=== PATIENT | female | born 1965 | race Caucasian/White ===

== ENCOUNTER → 2017-08-06 | Outpatient (CLI) | payer OTHER ==
[~2017-08-06] MED LIST: AMIT25TA9 PO; CALC500T83 PO; MULTTAB58 PO; TIZA4CAP PO
--- NOTE | 2017-08-07 07:35 | MAMMOGRAPHY REPORT ---
BILATERAL DIGITAL SCREENING MAMMOGRAM TOMOSYNTHESIS WITH CAD: 08/06/2017 CLINICAL HISTORY: Routine screening examination. TECHNIQUE: Breast tomosynthesis in addition to standard 2D mammography was performed. Current study was also evaluated with a Computer Aided Detection (CAD) system. COMPARISON: Comparison is made to exams dated: 08/30/2015 mammogram, 06/25/2013 mammogram, 2 mammogram, 06/12/2011 mammogram, 06/05/2010 mammogram - [facility], and 03/01/2009. BREAST COMPOSITION: There are scattered areas of fibroglandular density in both breasts. FINDINGS: No suspicious mass, architectural distortion or cluster of microcalcifications is seen. IMPRESSION: ACR BI-RADS CATEGORY 1: NEGATIVE There is no mammographic evidence of malignancy. A 1 year screening mammogram is recommended. The pa tient will receive written notification of the results. Approximately 10% of breast cancers are not detected with mammography. A negative mammographic report should not delay biopsy if a clinically suggestive mass is present. Shauna katz/silas:08/06/2017 17:04:07 Manager Background: Pricilla ESPINOSA(R)(M), [facility] letter sent: Normal 1/2 BI-RADS Code: ACR BI-RADS Category 1: Negative
== END | disposition home or self-care (01) ==
LOC: EDSTATUS 08:55 → C.MAMM 09:02
PROVIDERS: ATTEND Obstetrics & Gynecology
DX: Z12.31 Encounter for screening mammogram for malignant neoplasm of breast (principal)

== ENCOUNTER 2017-09-30 18:30 | Emergency (ER) | payer OTHER ==
[~2017-09-30] VITALS: Ht 154.9 cm; Wt 66.5 kg
[2017-09-30 19:15] VITALS: TEMP 36.9; Ht 154.9 cm; Wt 66.5 kg
[2017-09-30 20:38] LABS: BASO % 0.4 %; BASO ABS # 0.02 K/uL (0-0.2); EOS % 0.4 %; EOS ABS # 0.02 K/uL (0-0.5); HEMATOCRIT 36.6 % (37-47); HEMOGLOBIN 12.7 g/dL (12.0-16.0); IG# 0.01 K/uL (0.00-0.02); LYMPH % 30.9 %; LYMPH ABS # 1.47 K/uL (1.2-3.4); MEAN CELL VOLUME 89.7 fL (80-100); MEAN CORPUSCULAR HEMOGLOBIN 31.1 pg (25-34); MEAN CORPUSCULAR HGB CONC 34.7 g/dl (32-36); MEAN PLATELET VOLUME 9.1 fL (7.4-10.4); MONO % 3.4 %; MONO ABS # 0.16 K/uL (0.11-0.59); NEUT % 64.7 %; NEUT ABS # 3.08 K/uL (1.4-6.5); PLATELET COUNT 175 K/uL (130-400); RED CELL DISTRIBUTION WIDTH CV 11.7 % (11.5-14.5); RED CELL DISTRIBUTION WIDTH SD 38.5 fL (36.4-46.3); WHITE BLOOD COUNT 4.76 K/uL (4.8-10.8)
[2017-09-30 20:48] LABS: INFLUENZA B ANTIGEN Neg for Influ B (NEG)
[2017-09-30 20:50] LABS: CALCIUM 9.2 mg/dl (8.5-10.1); CREATININE 0.79 mg/dl (0.60-1.20); POTASSIUM 3.5 mmol/L (3.5-5.1); PTT PATIENT 25.7 SECONDS (21.0-31.0)
--- NOTE | 2017-09-30 21:07 | DIAGNOSTIC IMAGING REPORT ---
CHEST 2 VIEWS ROUTINE CLINICAL HISTORY: Cough COMPARISON STUDY: 01/14/2014 FINDINGS: The cardiac and mediastinal contours are normal. There is no evidence of focal pulmonary consolidation. There is no evidence of failure. No pleural effusions are visualized.[ IMPRESSION: No active disease in the chest. Electronically signed by: Vignesh Roa M.D. 09/30/2017 9:06 PM Dictated Date/Time: 09/30/2017 9:06 PM
[2017-09-30] MEDS ORDERED: ONDANSETRON INJ 2 MG/ML 2 ML VIAL IV STA (21:33)
[2017-09-30] MEDS ORDERED: ONDA4TAB10 SL (23:00)
[2017-09-30 23:18] VITALS: BP 117/73; PULSE 76; O2SAT 97
--- NOTE | 2017-10-01 00:25 | EMERGENCY ROOM VISIT NOTE ---
History Report prepared by Waylon: Everardo Patten Under the Supervision of: Dr. Jose Giraldo M.D. First contact with patient: 19:49 Chief Complaint: FLU LIKE SX Stated Complaint: FLU LIKE SX, MULTILPE SX History of Present Illness The patient is a 51 year old female who presents to the Emergency Room with complaints of persistent flu-like symptoms that began 8 days prior to arrival. The patient states that her symptoms began with a sore throat and "hoarse" voice that lasted for 2-3 days. She then developed a fever which lasted for a few days, but she did not record any specific temperatures. The patient also complains of persistent nausea over the past couple of days and a discomfort in the epigastric region of her abdomen/chest. She notes that this discomfort is only present with movement and resolved on its own when she stops moving. It is not related to exertion. She states that it feels more like a nausea sensation in any type of pain. She was concerned because she thought it may be related to her heart. She denies any associated shortness of breath or diaphoresis. She denies any chest pressure, tightness or squeezing. There have not been any vomiting episodes with her nausea. She has a cough currently which is producing a "greenish-yellow" colored mucous. When she coughs she can feel a pain in her upper back. The patient is currently taking an old prescription of Doxycycline that she started herself on 7 days ago. 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 A total of 10 systems reviewed and were otherwise negative. Past Medical & Surgical Medical Problems: (1) Carpal tunnel syndrome (2) Chronic low back pain (3) Guillain-Azevedo syndrome Family History No pertinent family history Social History Smoking Status: Never Smoker Alcohol Use: none Drug Use: none Marital Status: Housing Status: lives with family Occupation Status: employed Current/Historical Medications Scheduled Multiple Vitamin (Multivitamin), 1 TAB PO HS Ondasetron Odt (Zofran Odt), 4 MG SL Q6H Allergies Coded Allergies: Naproxen (Verified Allergy, Severe, swelling of face and throat, 1/29/18) Flu Virus Vaccine (Verified Allergy, Unknown, UNKNOWN, 09/30/17) patient has never received...she says she got gullain barre in 2007 and that is why she can't receive the vaccine Physical Exam Vital Signs Date Time Temp Pulse Resp B/P (MAP) Pulse Ox O2 Delivery O2 Flow Rate FiO2 09/30/17 23:18 76 16 117/73 97 09/30/17 23:08 76 16 117/73 97 Room Air 09/30/17 22:57 76 09/30/17 22:27 91 16 116/72 98 Room Air 09/30/17 20:40 87 14 116/76 98 Room Air 09/30/17 19:15 36.9 84 20 129/87 99 Room Air Physical Exam Constitutional: Vital signs reviewed. Eyes: Pupils are equal round reactive to light. Conjunctiva are noninjected. ENT: Pharynx is clear without erythema or exudate. Mucous membranes are moist. Neck supple without meningeal signs. Respiratory: Clear to auscultation bilaterally. Breath sounds are equal bilaterally. Cardiovascular: Regular rate and rhythm. No rubs or gallops. GI: Soft, nondistended and nontender. Bowel sounds are present. Musculoskeletal: No peripheral edema. No lower extremity tenderness. Integumentary: No cyanosis. Neurological: The patient is awake and alert. No focal deficits. Psychiatric: Anxious. Medical Decision & Procedures ER Provider Diagnostic Interpretation: Radiology results as stated below per my review and the radiologist's interpretation: CHEST 2 VIEWS ROUTINE CLINICAL HISTORY: Cough COMPARISON STUDY: 01/14/2014 FINDINGS: The cardiac and mediastinal contours are normal. There is no evidence of focal pulmonary consolidation. There is no evidence of failure. No pleural effusions are visualized.[ IMPRESSION: No active disease in the chest. Electronically signed by: Vignesh Roa M.D. 09/30/2017 9:06 PM Dictated Date/Time: 09/30/2017 9:06 PM Laboratory Results 09/30/17 20:20 Red Blood Count 4.08, Mean Corpuscular Volume 89.7, Mean Corpuscular Hemoglobin 31.1, Mean Corpuscular Hemoglobin Concent 34.7, Mean Platelet Volume 9.1, Neutrophils (%) (Auto) 64.7, Lymphocytes (%) (Auto) 30.9, Monocytes (%) (Auto) 3.4, Eosinophils (%) (Auto) 0.4, Basophils (%) (Auto) 0.4, Neutrophils # (Auto) 3.08, Lymphocytes # (Auto) 1.47, Monocytes # (Auto) 0.16, Eosinophils # (Auto) 0.02, Basophils # (Auto) 0.02 09/30/17 20:20 Test 09/30/17 20:04 09/30/17 20:20 09/30/17 21:47 Influenza Type A Antigen Neg for Influ A (NEG) Influenza Type B Antigen Neg for Influ B (NEG) White Blood Count 4.76 K/uL (4.8-10.8) Red Blood Count 4.08 M/uL (4.2-5.4) Hemoglobin 12.7 g/dL (12.0-16.0) Hematocrit 36.6 % (37-47) Mean Corpuscular Volume 89.7 fL (80-100) Mean Corpuscular Hemoglobin 31.1 pg (25-34) Mean Corpuscular Hemoglobin Concent 34.7 g/dl (32-36) Platelet Count 175 K/uL (130-400) Mean Platelet Volume 9.1 fL (7.4-10.4) Neutrophils (%) (Auto) 64.7 % Lymphocytes (%) (Auto) 30.9 % Monocytes (%) (Auto) 3.4 % Eosinophils (%) (Auto) 0.4 % Basophils (%) (Auto) 0.4 % Neutrophils # (Auto) 3.08 K/uL (1.4-6.5) Lymphocytes # (Auto) 1.47 K/uL (1.2-3.4) Monocytes # (Auto) 0.16 K/uL (0.11-0.59) Eosinophils # (Auto) 0.02 K/uL (0-0.5) Basophils # (Auto) 0.02 K/uL (0-0.2) RDW Standard Deviation 38.5 fL (36.4-46.3) RDW Coefficient of Variation 11.7 % (11.5-14.5) Immature Granulocyte % (Auto) 0.2 % Immature Granulocyte # (Auto) 0.01 K/uL (0.00-0.02) Prothrombin Time 10.4 SECONDS (9.0-12.0) Prothromb Time International Ratio 1.0 (0.9-1.1) Activated Partial Thromboplast Time 25.7 SECONDS (21.0-31.0) Partial Thromboplastin Ratio 1.0 Anion Gap 7.0 mmol/L (3-11) Est Creatinine Clear Calc Drug Dose 73.5 ml/min Estimated GFR () 100.5 Estimated GFR (Non- 86.7 BUN/Creatinine Ratio 14.3 (10-20) Calcium Level 9.2 mg/dl (8.5-10.1) Bedside Troponin I < 0.030 ng/ml (0-0.045) Laboratory results as reviewed by me. Medications Administered Medications (Trade) Dose Ordered Sig/Beth Route Start Time Stop Time Status Last Admin Dose Admin Ondansetron HCl (Zofran Inj) 4 mg NOW STAT IV 09/30/17 21:33 09/30/17 21:34 DC 09/30/17 21:33 4 MG ECG Indication: abdominal pain, chest pain Rate (beats per minute): 81 Rhythm: normal sinus Findings: RBBB (incomplete), no ectopy, other (RSR pattern in the septal leads. No ST elevation) Comparison ECG Date: 02/10/2016 Change: no significant change Change: Patient's electrocardiogram per my interpretation.. ED Course 1950: The patient was evaluated in room A2. A complete history and physical exam was performed. 2129: I checked on the patient at this time and discussed test results. She agrees with taking a 90 minute Troponin test. 2132: Ordered Zofran 4 mg IV. 2256: Upon reevaluation, the patient noted that the chest discomfort that she previously described at nausea is now gone after Zofran. I discussed tonight's findings with her. She verbalized agreement of the treatment plan. The patient was discharged home. Medical Decision This is a 51-year-old female who presents with flulike symptoms and a chest discomfort. Differential diagnosis includes influenza, pneumonia, bronchitis, anginal equivalent, dyspepsia. I did perform a limited focused review of portions of the patient's old chart on the electronic medical record. The patient has had no recent pertinent visits to this hospital. I did evaluate the patient as noted above. The patient is presenting with flulike symptoms for the past week. She has been self-medicating with doxycycline which she has had from a prior prescription. It is not . She was concerned because she developed a chest discomfort which she describes as mostly and nausea. She states it's there only when she moves around but not related to exertion. She has no associated symptoms with it. IV access was established. The patient was placed on a continuous groundwater monitoring technician. I did order and personally review the patient's 12-lead EKG and chest x-ray as described above. Her twelve-lead EKG is unremarkable. Chest x-ray does not show any signs of pneumonia. I did order and review the patient's blood work as noted in the electronic medical record. Troponin is negative 2. Flu testing is negative. I did treat the patient with Zofran IV. She stated that her chest discomfort resolved after Zofran. The patient was advised follow with her doctor for further evaluation. She was given a prescription for Zofran and given return instructions as outlined below. Medication Reconcilliation Current Medication List: was personally reviewed by me Blood Pressure Screening Patient's blood pressure: Elevated blood pressure Impression Primary Impression: Influenza-like symptoms Additional Impression: Atypical chest pain Scribe Attestation The scribe's documentation has been prepared under my direct and personally reviewed by me in its entirety. I confirm that the note above accurately reflects all work, treatment, procedures, and medical decision making performed by me. Departure Information Dispostion Home / Self-Care Prescriptions Ondasetron Odt (ZOFRAN ODT) 4 Mg Tab 4 MG SL Q6H for Nausea, #10 TAB Prov: Jose Giraldo M.D. 09/30/17 Referrals No Doctor, Assigned (PCP) Forms HOME CARE DOCUMENTATION FORM, IMPORTANT VISIT INFORMATION Patient Instructions My [facility] Additional Instructions You have been examined and treated today on an emergency basis only. This is not a substitute for, or an effort to provide, complete comprehensive medical care. It is impossible to recognize and treat all injuries or illnesses in a single emergency department visit. It is therefore important that you follow up closely with your physician. Call as soon as possible for an appointment. Return for worsening symptoms or if you develop chest pain or discomfort such as squeezing, tightness or pressure, abdominal pain, trouble breathing, vomiting , or any other concerning symptoms. Problem Qualifiers
== END 2017-09-30 23:19 | disposition home or self-care (01) ==
LOC: C.EDB 18:32 → C.EDA 23:19
DX: J02.9 Acute pharyngitis, unspecified (principal); R50.9 Fever, unspecified; R11.0 Nausea; R10.13 Epigastric pain; R05 Cough; R07.89 Other chest pain; G56.00 Carpal tunnel syndrome, unspecified upper limb; M54.5 Low back pain; G89.29 Other chronic pain; G61.0 Guillain-Barre syndrome; I45.10 Unspecified right bundle-branch block

== ENCOUNTER → 2017-10-24 | Outpatient (CLI) | payer BC ==
[~2017-10-24] MED LIST changes: -AMIT25TA9 PO; -CALC500T83 PO; +ONDA4TAB10 SL; -TIZA4CAP PO
== END | disposition home or self-care (01) ==
LOC: C.PAPS 11:55
PROVIDERS: ATTEND Obstetrics & Gynecology
DX: Z01.419 Encounter for gynecological examination (general) (routine) without abnormal findings (principal)

== ENCOUNTER 2018-04-19 23:30 | Emergency (ER) | payer BC ==
[~2018-04-19] VITALS: Ht 154.9 cm; Wt 72.7 kg
[~2018-04-19 23:30] MED LIST changes: -ONDA4TAB10 SL
[2018-04-19 23:36] VITALS: TEMP 36.7; Ht 154.9 cm; Wt 72.7 kg
[2018-04-19] MEDS ORDERED: KETOROLAC TROMETHAMINE 30 MG/ML VIAL IV STA (23:56)
[2018-04-20] MEDS ORDERED: CALC500C70 PO (00:12)
[2018-04-20 00:18] LABS: BASO % 0.4 %; BASO ABS # 0.02 K/uL (0-0.2); EOS % 2.6 %; EOS ABS # 0.12 K/uL (0-0.5); HEMATOCRIT 36.9 % (37-47); HEMOGLOBIN 12.3 g/dL (12.0-16.0); IG# 0.01 K/uL (0.00-0.02); LYMPH % 40.4 %; LYMPH ABS # 1.89 K/uL (1.2-3.4); MEAN CELL VOLUME 90.9 fL (80-100); MEAN CORPUSCULAR HEMOGLOBIN 30.3 pg (25-34); MEAN CORPUSCULAR HGB CONC 33.3 g/dl (32-36); MEAN PLATELET VOLUME 8.7 fL (7.4-10.4); MONO % 6.4 %; NEUT ABS # 2.34 K/uL (1.4-6.5); PLATELET COUNT 178 K/uL (130-400); RED CELL DISTRIBUTION WIDTH CV 12.6 % (11.5-14.5); RED CELL DISTRIBUTION WIDTH SD 42.1 fL (36.4-46.3); WHITE BLOOD COUNT 4.68 K/uL (4.8-10.8)
[2018-04-20 00:39] LABS: BLOOD UREA NITROGEN 20 mg/dl (7-18); CALCIUM 8.3 mg/dl (8.5-10.1); CARBON DIOXIDE 27 mmol/L (21-32); CREATININE 0.77 mg/dl (0.60-1.20); GLUCOSE 91 mg/dl (70-99); POTASSIUM 3.9 mmol/L (3.5-5.1); SODIUM 142 mmol/L (136-145)
--- NOTE | 2018-04-20 00:41 | EMERGENCY ROOM VISIT NOTE ---
History Report prepared by Waylon: Jose Watts Under the Supervision of: Dr. Lyndsey Grimaldo D.O. First contact with patient: 23:43 Chief Complaint: ARM PAIN Stated Complaint: PAIN IN LEFT ARM History of Present Illness The patient is a 52 year old female who presents to the Emergency Room with complaints of waxing and waning upper left arm pain that began 2-3 days ago. Patient states she tripped over her dog a week ago but was not experiencing the pain at that time. She adds she had left shoulder surgery performed a little over a year ago. Patient states that nothing worsens her pain. She adds that she has taken ibuprofen and Tylenol without any relief of her symptoms. Patient adds she has a bruise on her forehead after being hit in the head by her dog. 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 Past medical history includes Guillain-[place]moreland Syndrome in 2007. Patient adds she gets mammograms with her last one being in October. Family history includes pancreatic and lung cancer. Patient states she is right-handed. She adds she drove herself to the ER. Patient believes she has had her cholesterol levels checked but does not know the last time. Patient denies abdominal pain, leg cramping/swelling, chest pain, SOB, nausea, vomiting, diaphoresis, and a history of smoking. Source of History: patient Onset: 2-3 days ago Position: arm (Upper left) Timing: waxes/wanes Modifying Factors (Relieving): other (None) Associated Symptoms: No diaphoresis, No chest pain, No SOB, No nausea, No vomiting, No abdominal pain Note: Negative leg cramping/swelling. Review of Systems See HPI for pertinent positives & negatives. A total of 10 systems reviewed and were otherwise negative. Past Medical & Surgical Medical Problems: (1) Carpal tunnel syndrome (2) Chronic low back pain (3) Guillain-Azevedo syndrome Family History No pertinent family history Social History Smoking Status: Never Smoker Alcohol Use: none Drug Use: none Marital Status: Housing Status: lives with family Occupation Status: employed Current/Historical Medications Scheduled Calcium/Vitamin D (Os-Jose 500 Plus D), 1 TAB PO DAILY Multiple Vitamin (Multivitamin), 1 TAB PO HS Allergies Coded Allergies: Naproxen (Verified Allergy, Severe, swelling of face and throat, 04/20/18) Flu Virus Vaccine (Verified Allergy, Unknown, UNKNOWN, 04/20/18) patient has never received...she says she got gullain barre in 2007 and that is why she can't receive the vaccine Physical Exam Vital Signs Date Time Temp Pulse Resp B/P (MAP) Pulse Ox O2 Delivery O2 Flow Rate FiO2 04/20/18 01:06 77 16 105/72 100 Room Air 04/19/18 23:36 36.7 89 18 123/83 93 Room Air Physical Exam HEENT: Head - normocephalic and atraumatic Pupils are equal, round, and reactive to light. Extraocular eye muscles are intact, and sclera are anicteric. Nose - moist nasal mucosa without discharge. Mouth - moist buccal mucosa. Oropharynx is nonerythematous and there is no tonsillar exudate or edema noted. Neck: Supple; no JVD, nuchal rigidity, cervical lymphadenopathy. Heart: Regular rate and rhythm. There is a normal S1 and S2 with no murmurs, clicks, or gallops appreciated. Lungs: Clear to auscultation bilaterally with no wheezes, rales, or rhonchi. Abdomen: Soft, completely nontender, nondistended, with good bowel sounds. There are no palpable pulsatile masses or hepatosplenomegaly. There is no guarding, rigidity, or rebound noted. Extremities: Edema around the upper biceps area. No evidence of cyanosis or clubbing. Pain with palpation in that area. There are easily palpable peripheral pulses. Skin: warm and dry with good turgor and no rashes. Medical Decision & Procedures ER Provider Diagnostic Interpretation: Radiology results as stated below per my review and the interpretation: CHEST X-RAY: X-ray shows no cardiomegaly, no pulmonary consolidation, and is unremarkable. LEFT HUMERUS X-RAY: X-ray shows no obvious fracture or abnormality. Laboratory Results 04/20/18 00:10 Red Blood Count 4.06, Mean Corpuscular Volume 90.9, Mean Corpuscular Hemoglobin 30.3, Mean Corpuscular Hemoglobin Concent 33.3, Mean Platelet Volume 8.7, Neutrophils (%) (Auto) 50.0, Lymphocytes (%) (Auto) 40.4, Monocytes (%) (Auto) 6.4, Eosinophils (%) (Auto) 2.6, Basophils (%) (Auto) 0.4, Neutrophils # (Auto) 2.34, Lymphocytes # (Auto) 1.89, Monocytes # (Auto) 0.30, Eosinophils # (Auto) 0.12, Basophils # (Auto) 0.02 04/20/18 00:10 Test 04/20/18 00:10 White Blood Count 4.68 K/uL (4.8-10.8) Red Blood Count 4.06 M/uL (4.2-5.4) Hemoglobin 12.3 g/dL (12.0-16.0) Hematocrit 36.9 % (37-47) Mean Corpuscular Volume 90.9 fL (80-100) Mean Corpuscular Hemoglobin 30.3 pg (25-34) Mean Corpuscular Hemoglobin Concent 33.3 g/dl (32-36) Platelet Count 178 K/uL (130-400) Mean Platelet Volume 8.7 fL (7.4-10.4) Neutrophils (%) (Auto) 50.0 % Lymphocytes (%) (Auto) 40.4 % Monocytes (%) (Auto) 6.4 % Eosinophils (%) (Auto) 2.6 % Basophils (%) (Auto) 0.4 % Neutrophils # (Auto) 2.34 K/uL (1.4-6.5) Lymphocytes # (Auto) 1.89 K/uL (1.2-3.4) Monocytes # (Auto) 0.30 K/uL (0.11-0.59) Eosinophils # (Auto) 0.12 K/uL (0-0.5) Basophils # (Auto) 0.02 K/uL (0-0.2) RDW Standard Deviation 42.1 fL (36.4-46.3) RDW Coefficient of Variation 12.6 % (11.5-14.5) Immature Granulocyte % (Auto) 0.2 % Immature Granulocyte # (Auto) 0.01 K/uL (0.00-0.02) Anion Gap 7.0 mmol/L (3-11) Est Creatinine Clear Calc Drug Dose 77.9 ml/min Estimated GFR () 102.9 Estimated GFR (Non- 88.8 BUN/Creatinine Ratio 26.5 (10-20) Calcium Level 8.3 mg/dl (8.5-10.1) Troponin I < 0.015 ng/ml (0-0.045) Laboratory results per my review. Medications Administered Medications (Trade) Dose Ordered Sig/Beth Route Start Time Stop Time Status Last Admin Dose Admin Ketorolac Tromethamine (Toradol Inj) 30 mg NOW STAT IV 04/19/18 23:56 04/19/18 23:58 DC 04/20/18 00:26 30 MG Procedure Toradol Inj 30mg IV ECG Per My Interpretation Indication: other (Left arm pain) Rate (beats per minute): 81 Rhythm: normal sinus Findings: no acute ischemic change, no ectopy, other (No ST segment changes) ED Course 2346: Past medical records reviewed. The patient was evaluated in room B6. A complete history and physical exam was performed. A 12-lead EKG was obtained as described above. An IV lock was initiated and labs were drawn as above. Patient had an x-ray of the left humerus and chest which were both unremarkable. 2356: Toradol Inj 30mg IV 0112: Upon reevaluation, the patient is resting comfortably and states she is feeling better. I discussed findings and results with her. She verbalized agreement of the treatment plan. She was discharged home. Medical Decision The patient is a 52 year old female who presents to the ED with waxing and waning upper left arm pain. Differential diagnosis includes musculoskeletal pain to the left arm, superior vena cava syndrome, cardiac ischemia, anginal equivalent, and left shoulder strain. Lab results show no leukocytosis, stable H&H, BUN = 20, creatinine = 0.7, glucose = 91, and negative troponin. This is a 52-year-old healthy female patient presents to the emergency department with discomfort in her left upper arm. She denies any specific injury to the arm. 12-lead EKG and cardiac enzymes were negative. She received a dose of IV Toradol with complete resolution of her pain. On physical exam, the patient did have some discomfort with palpation to the left upper arm and swelling noted in that area. She was encouraged to follow-up with her PCP if symptoms persisted. She was encouraged to avoid any strenuous activity or heavy lifting with the left arm for the next 3-5 days. Medication Reconcilliation Current Medication List: was personally reviewed by me Blood Pressure Screening Patient's blood pressure: Normal blood pressure Blood pressure disposition: Did not require urgent referral Impression Primary Impression: Pain of left humerus Scribe Attestation The scribe's documentation has been prepared under my direction and personally reviewed by me in its entirety. I confirm that the note above accurately reflects all work, treatment, procedures, and medical decision making performed by me. Departure Information Dispostion Home / Self-Care Referrals Don Sanders M.D. (PCP) Forms HOME CARE DOCUMENTATION FORM, IMPORTANT VISIT INFORMATION Patient Instructions My [facility] Additional Instructions Rest the left arm. No heavy lifting for next 3-5 days Motrin - 600mg every 6 hours with food for pain follow up with PCP if it continues
[2018-04-20 01:06] VITALS: BP 105/72; PULSE 77; O2SAT 100
--- NOTE | 2018-04-20 08:06 | DIAGNOSTIC IMAGING REPORT ---
L HUMERUS MIN 2 VIEWS ROUTINE CLINICAL HISTORY: Left proximal humerus pain. COMPARISON: Left shoulder radiographs December 13, 2015 and MRI of the left shoulder in 2016. FINDINGS: Note is made of a distal left clavicular resection. No fracture or osseous lesion within the left humerus is identified. Alignment of the left shoulder and elbow appears anatomic. IMPRESSION: No osseous abnormality of the left humerus. Electronically signed by: Jayme Barros M.D. 04/20/2018 8:04 AM Dictated Date/Time: 04/20/2018 8:03 AM
--- NOTE | 2018-04-20 08:07 | DIAGNOSTIC IMAGING REPORT ---
CHEST ONE VIEW PORTABLE CLINICAL HISTORY: Left arm pain. COMPARISON STUDY: Chest radiograph September 30, 2017. FINDINGS: Lung volumes are normal. There is no pneumothorax or pleural effusion. There is no consolidation or evidence for pulmonary edema. Cardiac size is normal. Mediastinal contours are normal. Appearance of the chest is unchanged. IMPRESSION: No acute cardiopulmonary findings. Electronically signed by: Jayme Barros M.D. 04/20/2018 8:06 AM Dictated Date/Time: 04/20/2018 8:04 AM
== END 2018-04-20 01:20 | disposition home or self-care (01) ==
LOC: C.EDB 23:31
DX: M79.622 Pain in left upper arm (principal); W01.0XXD Fall on same level from slipping, tripping and stumbling without subsequent striking against object, subsequent encounter; S00.83XD Contusion of other part of head, subsequent encounter; Z98.890 Other specified postprocedural states; Z85.07 Personal history of malignant neoplasm of pancreas; Z85.118 Personal history of other malignant neoplasm of bronchus and lung; G61.0 Guillain-Barre syndrome; M54.5 Low back pain; G89.29 Other chronic pain; Z88.6 Allergy status to analgesic agent; Z88.7 Allergy status to serum and vaccine

== ENCOUNTER 2018-12-28 19:53 | Inpatient (IN) ==
[2018-12-28] MEDS ORDERED: SODIUM CHLORIDE 0.9% 1000ML 1,000 ML IV ONE (20:10)
[2018-12-28 21:03] LABS: Appearance Urine Clear (Clear); Blood Urine Negative (Negative); Color Urine Dark Yellow; Glucose Urine UA Negative (Negative); Ketones Urine Negative (Negative); Leukocyte Esterase Urine Negative (Negative); Nitrite Urine Negative (Negative); Protein Urine Negative (Negative); Urobilinogen Urine Negative (Negative); pH Urine 6.5 (4.5-7.5)
[2018-12-28 21:04] LABS: Basophils # (auto) 0.01 K/uL (0-0.2); Basophils % (auto) 0.2 %; Eosinophils # (auto) 0.06 K/uL (0-0.5); Eosinophils % (auto) 1.3 %; Hematocrit (blood only) 36.4 % (37-47); Hemoglobin 12.8 g/dL (12.0-16.0); Immature Granulocytes # (auto) 0.01 K/uL (0.00-0.02); Immature Granulocytes % (auto) 0.2 %; Lymphocytes # (auto) 0.36 K/uL (1.2-3.4); Lymphocytes % (auto) 7.8 %; Mean Corpuscular Hgb Conc 35.2 g/dL (32-36); Mean Corpuscular Volume 89.7 fL (80-100); Monocytes # (auto) 0.22 K/uL (0.11-0.59); Monocytes % (auto) 4.7 %; Neutrophils # (auto) 3.98 K/uL (1.4-6.5); Neutrophils % (auto) 85.8 %; Platelet Count 162 K/uL (130-400); RDW Coefficient of Variation 12.3 % (11.5-14.5); RDW Standard Deviation 39.6 fL (36.4-46.3); Red Blood Count 4.06 M/uL (4.2-5.4); White Blood Count 4.64 K/uL (4.8-10.8)
--- NOTE | 2018-12-28 21:13 | XRay Report ---
XR abdomen 2V w PA chest HISTORY: 53 years-old Female epigastric pain acute epigastric abdominal pain COMPARISON: Chest radiograph 04/20/2018 TECHNIQUE: PA view of the chest with erect and supine views of the abdomen. FINDINGS: Cardiomediastinal and hilar silhouettes are within normal limits. No pneumothorax, pleural effusion, focal airspace consolidation or overt pulmonary edema. Bones appear grossly intact. No pneumatosis or pneumoperitoneum. Scattered radiodense foci noted throughout the bowel. Mild to mod erate volume of formed colonic stool. Bowel gas pattern is nonobstructive. No definite urolith. Indet erminate pelvic basin calcifications, likely representing phleboliths. IMPRESSION: 1. No acute processes of the chest. 2. Nonobstructive bowel gas pattern. The above report was generated using voice recognition software. It may contain grammatical, syntax o r spelling errors. Electronically signed by: Deepak Gregorio M.D. 12/28/2018 9:12 PM
[2018-12-28 21:14] LABS: Bilirubin Urine 1+ (Negative)
[2018-12-28 21:15] LABS: Ictotest Urine Positive (Negative)
[2018-12-28 21:17] LABS: INR 1.1 (0.9-1.1); Partial Thromboplastin Ratio 0.9; Partial Thromboplastin Time 25.6 Seconds (21.0-31.0); Prothrombin Time 10.9 Seconds (9.0-12.0)
[2018-12-28 21:24] LABS: Albumin Level 3.3 gm/dl (3.4-5.0); BUN Creatinine Ratio 9.5 (10-20); Bilirubin,Total 3.8 mg/dl (0.2-1); Calcium 8.9 mg/dl (8.5-10.1); Creatinine Clr Calc Pharmacy 72.8 ml/min; Est GFR (African American) 93.3; Est GFR (Non-African American) 80.5; Total Protein 7.2 gm/dl (6.4-8.2)
[2018-12-28 21:37] LABS: Influenza A virus by PCR Neg for Influ A (Neg); Influenza B virus by PCR Neg for Influ B (Neg)
[2018-12-28] MEDS ORDERED: ACETAMINOPHEN 1,000 MG/100 ML VIAL IV STA (23:43)
[2018-12-28] MEDS ORDERED: SODIUM CHLORIDE 0.9% 1000ML 1,000 ML IV SCH (23:45)
[2018-12-29] MEDS ORDERED: metroNIDAZOLE 500 MG/100 ML BAG IV STA (00:08)
[2018-12-29] MEDS ORDERED: cefTRIAXone SODIUM 2,000 MG in DEXTROSE 5% 50 ML IV STA (00:08)
--- NOTE | 2018-12-29 01:01 | History & Physical Report ---
Date of Service December 29, 2018 Assessment & Plan (1) Cholecystitis: 53 y/o F Hx Ирина Hawk 2008, lower extremity neuropathy - taking Suboxone for pain management. Presents with upper quadrant abdominal pain. She developed a fever of 101.2 while in the ER. An US is consistent with cho lelithiasis and cholecystitis. The CBD is minimally dilated. There is also a lesion or cyst arising from the upper pole of the kidney or tail of the pancreas. 1) Cholecystitis - possible cholangitis. Likely etiology is biliary obstruction due to a stone. Pt is placed on Ceftriaxone and Flagyl. GI and surgery are consulted. She will be kept NPO, IVF, antiemetics provided. We should attempt to avoid narcotic use if possible as she is taking Suboxone BID. There is a possible cyst reported which arises from either the pancreas or the L kidney. Considering a family history of pancreatic cancer, we will obtain an abdominal MR which will also assist with management. The pt is active and does not have cardiovascular risk factors for surgery. 2) neuropathy and Suboxone use - she will need to continue Suboxone. We could consider antiinflammatories post op, and possibly Ketamine for pain management. Full code - SCDs pending surgery evaluation Total time for this admit including review of labs, meds, imaging, records - discussion with pt and ER attending - 40 min Present on Admission?: Yes History of Present Illness Chief Complaint: Abdominal pain, fever Primary Care Provider: Don Sanedrs MD 53 y/o F Hx Ирина Hawk 2008, lower extremity neuropathy - taking Suboxone for pain management. Presents with upper quadrant abdominal pain. She developed a fever of 101.2 while in the ER. An US is consistent with cholelithiasis and cholecystitis. The CBD is minimally dilated. There is also a lesion or cyst arising from the upper pole of the kidney or tail of the pancre as. PMH: 1) [place] 2007 2) Lower extremity neuropathy 3) Pain management with Suboxone - denies prior narcotic addiction and states she was placed on Suboxone to avoid narcotic use for her pain. Surgical: Denies Social: Does not drink or smoke. 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 Family: Father due to pancreatic CA Mother due to lung CA Allergies Allergy/AdvReac Type Severity Reaction Status Date / Time naproxen Allergy Severe swelling Verified 12/28/18 20:42 of face and throat Flu Virus Vaccine Allergy Unknown UNKNOWN Uncoded 12/28/18 20:42 Home Medications Home Medications Medication Instructions Recorded Confirmed Type acetaminophen [Tylenol Extra 100 mg PO BID PRN 12/28/18 12/28/18 History Strength] buprenorphine-naloxone 2 tabs SUBLINGUAL DAILY 12/28/18 12/28/18 History calcium carbonate-vitamin D3 1 tab PO DAILY 12/28/18 12/28/18 History [Os-Jose 500 + D3] ibuprofen 800 mg PO Q4 PRN 12/28/18 12/28/18 History multivitamin 1 tab PO DAILY 12/28/18 12/28/18 History Past Med/Surg History Medical History Hepatitis (Resolved) Mononucleosis (Resolved) Chronic low back pain (Chronic 06/15/13) 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) Surgical History Previous section Family History Other No pertinent family history Social History Preferred Language: Spanish Feels Safe at Home: Yes Smoking Status: Never smoker Review of Systems Review of Systems: Gen: Fever reported in the ER ENT: Denies congestion, throat pain, hearing loss Eyes: Denies acute visual changes CV: Denies CP, palpitations Pulmonary: Denies SOB, cough, wheezing GI: + Abdominal pain Neuro: Denies acute or unilateral weakness, acute gait impairment, headache or acute visual changes Musculoskeletal: Denies joint pain, inflammation Endocrine: Denies polydipsia, polyuria Skin: Denies acute rashes or ulcers - did not notice jaundice Physical Exam Physical Exam: General: AAO x 3, no distress ENT: No erythema or exudates, no thrush Eyes: ROWENA, EOMI - mild icterus Head and neck: Normocephalic, atraumatic, No JVD, neck is supple. Chest/heart: Nontender, S1,2, RRR, no murmurs, no gallops Lungs: CTAB, no wheezing or crackles Abdomen: Mild upper quadrant tenderness to palpation Neuro: AAO x 3, speech is clear, no unilateral weakness or loss of sensation, coordination intact Musculoskeletal: No joint inflammation, muscle tenderness, FROM Skin: No acute rashes or ulcers Extremities: No clubbing, cyanosis, edema Results & Data Vital Signs (Past 12 Hours) Vital Signs Temp Pulse Pulse Resp BP BP Pulse Ox 12/29/18 00:39 101.5 F H 112 H 14 121/64 97 12/28/18 23:40 101.8 F H 113 H 18 124/76 99 12/28/18 22:25 109 H 20 113/70 100 12/28/18 21:15 95 H 20 112/82 99 12/28/18 20:01 99.5 F 69 16 121/78 99
--- NOTE | 2018-12-29 01:33 | Emergency Department Note ---
Entered by Emeka Taylor acting as a scribe for Wili York History of Present Illness General Chief complaint: Abdominal Pain Stated complaint: SATURDAY NIGHT PAIN UNDER RIB CAGE/ABDOMEN Time Seen by Provider: 12/28/18 20:05 Source: patient History of Present Illness Onset (ago): day(s) 3 Location: abdomen (epigastric) Severity: severe (varies in intensity) Pain Consistency: + intermittent Relieved By: + medication (mildly with Tylenol and ibuprofen) Associated symptoms: + other (subjective fever and orange tint to her urine); no chest pain and no shortness of breath The patient is a 53 y/o female who presents to the ED w/ CC of intermittent epigastric pain beginning three days ago. The patient states her pain has been intermittent and ranges in intensity. She reports she has been experiencing mild relief with Tylenol and ibuprofen. The patient notes she has had subjective fevers and an orange tint to her urine. She states she has not been to her PCP in while because she "did not have a reason to go". The patient denies chest pain, shortness of breath, alcohol use, and tobacco use. Home Medications Home Medications Medication Instructions Recorded Confirmed Type acetaminophen [Tylenol Extra 100 mg PO BID PRN 12/28/18 12/28/18 History Strength] buprenorphine-naloxone 2 tabs SUBLINGUAL DAILY 12/28/18 12/28/18 History calcium carbonate-vitamin D3 1 tab PO DAILY 12/28/18 12/28/18 History [Os-Jose 500 + D3] ibuprofen 800 mg PO Q4 PRN 12/28/18 12/28/18 History multivitamin 1 tab PO DAILY 12/28/18 12/28/18 History Allergies Allergy/AdvReac Type Severity Reaction Status Date / Time naproxen Allergy Severe swelling Verified 12/28/18 20:42 of face and throat Flu Virus Vaccine Allergy Unknown UNKNOWN Uncoded 12/28/18 20:42 Past Med/Surg History Medical History Hepatitis (Resolved) Mononucleosis (Resolved) Chronic low back pain (Chronic 06/15/13) 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 and A total of 10 systems reviewed and were otherwise negative Physical Exam Vital Signs Vital Signs - 24 hr 12/28/18 20:01 12/28/18 21:15 12/28/18 22:25 Temperature 37.5 C Temperature Source Oral Sepsis Recent Fever Within 48 Hours No Sepsis New/Unexplained Change in Mental Status No Sepsis Action Taken by Nursing No Action Required Pulse Rate 69 Pulse Rate [Finger] 95 H 109 H Respiratory Rate 16 20 20 Respiratory Effort / Characteristics Non-Labored Spontaneous Respiratory Depth Normal Respiratory Pattern Regular Blood Pressure 121/78 Blood Pressure [Right Arm] 112/82 113/70 Blood Pressure Mean 92 Blood Pressure Mean [Right Arm] 92 84 Pulse Oximetry 99 99 100 Oxygen Delivery Method Room Air Room Air Room Air 12/28/18 23:40 12/29/18 00:39 12/29/18 01:13 Temperature 38.8 C H 38.6 C H 38.4 C H Temperature Source Oral Oral Oral Sepsis Recent Fever Within 48 Hours Sepsis New/Unexplained Change in Mental Status Sepsis Action Taken by Nursing Pulse Rate Pulse Rate [Finger] 113 H 112 H 112 H Respiratory Rate 18 14 21 Respiratory Effort / Characteristics Non-Labored Spontaneous Respiratory Depth Normal Respiratory Pattern Regular Blood Pressure Blood Pressure [Right Arm] 124/76 121/64 110/67 Blood Pressure Mean Blood Pressure Mean [Right Arm] 92 83 81 Pulse Oximetry 99 97 97 Oxygen Delivery Method Room Air Room Air Room Air GENERAL: She is oriented to person, place, and time. She appears well-developed and well-nourished. She does not appear distressed. HENT: Exam performed. Head: Normocephalic and atraumatic. Right Ear: External ear normal. No mastoid tenderness. Left Ear: External ear normal. No mastoid tenderness. Mouth/Throat: The oropharynx is clear and moist. No trismus in the jaw. No dental abscesses or uvula swelling. No oropharyngeal exudate or tonsillar a bscesses. EYES: Conjunctivae and EOM are normal. Pupils are equal, round, and reactive to light. Right eye exhibits no discharge. Left eye exhibits no discharge. No scleral icterus. NECK: Normal range of motion. Neck supple. No JVD present. No spinous process tenderness present. No carotid bruit present. No rigidity. No tracheal deviation and normal range of motion present. No Brudzinski's sign and no Kernig's sign noted. CV: Normal rate, regular rhythm, normal heart sounds and intact distal pulses. There is no peripheral edema. Palpable radial pulses bue. PULM/CHEST: Effort normal and breath sounds normal. No respiratory distress. No stridor. She has no wheezes. She has no rales. Chest Wall: She exhibits no tenderness. ABD: The abdomen is soft. Bowel sounds are normal. She has no distension. No mass is present. There tenderness to palpation of the epigastric area. There is no rebound, no guarding, no Bernstein's sign and no tenderness at McBurney's point. Rovsig negative MUSC/SKEL: Normal range of motion. There is no peripheral edema, tenderness or deformity. LYMPH: No cervical adenopathy. NEURO: She is alert and oriented to person, place, and time. She has normal strength. No cranial nerve deficit or sensory deficit. Coordination and gait normal. GCS eye subscore is 4. GCS verbal subscore is 5. GCS motor subscore is 6. cerbellar tests wnl. SKIN: Skin is warm and dry. She is not diaphoretic. She appears to be jaundice. PSYCH: She has a normal mood and affect. Her behavior is normal. Judgment and thought content normal. Course 2012: The patient was evaluated in room A11B. A complete history and physical exam was performed. 2351: Patient became febrile in the emergency department. Labs showed elevated total bilirubin of 3.8, direct bilirubin of 2.2. AST and ALT elevated at 96 and 170 respectively. Alkaline phosphatase elevated 220. Ultrasound shows gallstones with mild pericholecystic fluid as well as gallbladder wall thickening. On repeat physical exam, the patient is tachycardic. Additional IV fluids ordered. On repeat abdominal exam, the patient is not having any pain on palpation of the right upper quadrant. Mild pain on palpation of the epigastric area. The patient does not have the classical triad for ascending cholangitis, she does not have right upper quadrant pain, however she does have fever, jaundice, and gallstones, there is concern that the patient has acute cholecystitis that has the potential to develop into asending cholangitis. I will start antibiotics and the patient Rocephin 2 g IV piggyback as well as Flagyl 500 mg IV piggyback. Tylenol IV given for the fever. I discussed the patient's case with Dr. Silveira, General Surgery. He states the patient should be admited to medicine and agrees to begin antibiotics. He states the patient should be evaluated by GI and he agrees to be on consult. I spoke with Dr. Irby of the [facility] Hospitalist Service. The patient will be evaluated for further management. Administered Medications Sodium Chloride (Nss 1000ml) 1,000 mls @ 125 mls/hr IV .Q8H BOBY Stop: 01/27/19 23:44 Last Infusion: 12/29/18 01:21 Dose: 0 mls/hr Documented by: [id number] Infusion: 12/29/18 00:30 Dose: 999 mls/hr Documented by: [id number] Admin: 12/28/18 23:50 Dose: 125 mls/hr Documented by: [id number] Discontinued Medications Sodium Chloride (Nss 1000ml) 1,000 mls @ 999 mls/hr IV .Q1H1M ONE Stop: 12/28/18 21:10 Last Infusion: 12/28/18 22:24 Dose: 0 mls/hr Documented by: [id number] Admin: 12/28/18 21:19 Dose: 999 mls/hr Documented by: [id number] Acetaminophen (Ofirmev) 1,000 mg in 100 mls @ 400 mls/hr IV NOW STA Stop: 12/28/18 23:57 Last Infusion: 12/29/18 00:05 Dose: 0 mls/hr Documented by: [id number] Admin: 12/28/18 23:50 Dose: 400 mls/hr Documented by: [id number] Metronidazole (Flagyl) 500 mg in 100 mls @ 100 mls/hr IV NOW STA Stop: 12/29/18 01:07 Last Infusion: 12/29/18 01:19 Dose: 0 mls/hr Documented by: [id number] Admin: 12/29/18 00:19 Dose: 100 mls/hr Documented by: [id number] Ceftriaxone Sodium 2,000 mg/ (Dextrose) 70 mls @ 100 mls/hr IV NOW STA Stop: 12/29/18 00:49 Last Infusion: 12/29/18 01:21 Dose: 0 mls/hr Documented by: [id number] Admin: 12/29/18 00:35 Dose: 100 mls/hr Documented by: [id number] Medical Decision Making Medical Records Attestation: I reviewed the patient's medical records. Home Medications Current Medication List: was personally reviewed by me Laboratory Data Attestation: I reviewed the patient's lab results. Result diagrams: 12/28/18 20:43 12/28/18 20:43 Lab Results 12/28/18 12/28/18 12/28/18 Range/Units 20:43 20:43 20:43 WBC 4.64 L (4.8-10.8) K/uL RBC 4.06 L (4.2-5.4) M/uL Hgb 12.8 (12.0-16.0) g/dL Hct 36.4 L (37-47) % MCV 89.7 (80-100) fL MCH 31.5 (25-34) pg MCHC 35.2 (32-36) g/dL RDW Std Deviation 39.6 (36.4-46.3) fL RDW Coeff of Stephanie 12.3 (11.5-14.5) % Plt Count 162 (130-400) K/uL MPV 9.0 (7.4-10.4) fL Immature Gran % (Auto) 0.2 % Neut % (Auto) 85.8 % Lymph % (Auto) 7.8 % Rusk % (Auto) 4.7 % Eos % (Auto) 1.3 % Baso % (Auto) 0.2 % Immature Gran # (Auto) 0.01 (0.00-0.02) K/uL Neut # (Auto) 3.98 (1.4-6.5) K/uL Lymph # (Auto) 0.36 L (1.2-3.4) K/uL Rusk # (Auto) 0.22 (0.11-0.59) K/uL Eos # (Auto) 0.06 (0-0.5) K/uL Baso # (Auto) 0.01 (0-0.2) K/uL PT 10.9 (9.0-12.0) Seconds INR 1.1 (0.9-1.1) APTT 25.6 (21.0-31.0) Seconds PTT Ratio 0.9 Sodium 138 (136-145) mmol/L Potassium 4.0 (3.5-5.1) mmol/L Chloride 102 (98-107) mmol/L Carbon Dioxide 29 (21-32) mmol/L Anion Gap 7.0 (3-11) BUN 8 (7-18) mg/dl Creatinine 0.83 (0.6-1.2) mg/dl Est Cr Clr Drug Dosing 72.8 ml/min Est GFR ( Amer) 93.3 Est GFR (Non-Af Amer) 80.5 BUN/Creatinine Ratio 9.5 L (10-20) Glucose 125 H (70-99) mg/dl Lactate (0.4-2.0) mmol/L Calcium 8.9 (8.5-10.1) mg/dl Total Bilirubin 3.8 H (0.2-1) mg/dl Direct Bilirubin (0-0.2) mg/dl AST 96 H (15-37) U/L ALT 170 H (12-78) U/L Alkaline Phosphatase 220 H (45-117) U/L Total Protein 7.2 (6.4-8.2) gm/dl Albumin 3.3 L (3.4-5.0) gm/dl Lipase 121 (73-393) U/L Urine Color Urine Appearance (Clear) Urine pH (4.5-7.5) Ur Specific [place] (1.000-1.030) Urine Protein (Negative) Urine Glucose (UA) (Negative) Urine Ketones (Negative) Urine Blood (Negative) Urine Nitrite (Negative) Urine Bilirubin (Negative) Urine Urobilinogen (Negative) Ur Leukocyte Esterase (Negative) Influenza Type A (PCR) (Neg) Influenza Type B (PCR) (Neg) 12/28/18 12/28/18 12/28/18 Range/Units 20:43 20:50 20:50 WBC (4.8-10.8) K/uL RBC (4.2-5.4) M/uL Hgb (12.0-16.0) g/dL Hct (37-47) % MCV (80-100) fL MCH (25-34) pg MCHC (32-36) g/dL RDW Std Deviation (36.4-46.3) fL RDW Coeff of Stephanie (11.5-14.5) % Plt Count (130-400) K/uL MPV (7.4-10.4) fL Immature Gran % (Auto) % Neut % (Auto) % Lymph % (Auto) % R[place] % (Auto) % Eos % (Auto) % Baso % (Auto) % Immature Gran # (Auto) (0.00-0.02) K/uL Neut # (Auto) (1.4-6.5) K/uL Lymph # (Auto) (1.2-3.4) K/uL Rusk # (Auto) (0.11-0.59) K/uL Eos # (Auto) (0-0.5) K/uL Baso # (Auto) (0-0.2) K/uL PT (9.0-12.0) Seconds INR (0.9-1.1) APTT (21.0-31.0) Seconds PTT Ratio Sodium (136-145) mmol/L Potassium (3.5-5.1) mmol/L Chloride (98-107) mmol/L Carbon Dioxide (21-32) mmol/L Anion Gap (3-11) BUN (7-18) mg/dl Creatinine (0.6-1.2) mg/dl Est Cr Clr Drug Dosing ml/min Est GFR ( Amer) Est GFR (Non-Af Amer) BUN/Creatinine Ratio (10-20) Glucose (70-99) mg/dl Lactate 2.0 (0.4-2.0) mmol/L Calcium (8.5-10.1) mg/dl Total Bilirubin (0.2-1) mg/dl Direct Bilirubin (0-0.2) mg/dl AST (15-37) U/L ALT (12-78) U/L Alkaline Phosphatase (45-117) U/L Total Protein (6.4-8.2) gm/dl Albumin (3.4-5.0) gm/dl Lipase (73-393) U/L Urine Color Dark Yellow Urine Appearance Clear (Clear) Urine pH 6.5 (4.5-7.5) Ur Specific [place] 1.010 (1.000-1.030) Urine Protein Negative (Negative) Urine Glucose (UA) Negative (Negative) Urine Ketones Negative (Negative) Urine Blood Negative (Negative) Urine Nitrite Negative (Negative) Urine Bilirubin 1+ H (Negative) Urine Urobilinogen Negative (Negative) Ur Leukocyte Esterase Negative (Negative) Influenza Type A (PCR) Neg for Influ A (Neg) Influenza Type B (PCR) Neg for Influ B (Neg) 12/28/18 Range/Units 23:25 WBC (4.8-10.8) K/uL RBC (4.2-5.4) M/uL Hgb (12.0-16.0) g/dL Hct (37-47) % MCV (80-100) fL MCH (25-34) pg MCHC (32-36) g/dL RDW Std Deviation (36.4-46.3) fL RDW Coeff of Stephanie (11.5-14.5) % Plt Count (130-400) K/uL MPV (7.4-10.4) fL Immature Gran % (Auto) % Neut % (Auto) % Lymph % (Auto) % [place] % (Auto) % Eos % (Auto) % Baso % (Auto) % Immature Gran # (Auto) (0.00-0.02) K/uL Neut # (Auto) (1.4-6.5) K/uL Lymph # (Auto) (1.2-3.4) K/uL [place] # (Auto) (0.11-0.59) K/uL Eos # (Auto) (0-0.5) K/uL Baso # (Auto) (0-0.2) K/uL PT (9.0-12.0) Seconds INR (0.9-1.1) APTT (21.0-31.0) Seconds PTT Ratio Sodium (136-145) mmol/L Potassium (3.5-5.1) mmol/L Chloride (98-107) mmol/L Carbon Dioxide (21-32) mmol/L Anion Gap (3-11) BUN (7-18) mg/dl Creatinine (0.6-1.2) mg/dl Est Cr Clr Drug Dosing ml/min Est GFR ( Amer) Est GFR (Non-Af Amer) BUN/Creatinine Ratio (10-20) Glucose (70-99) mg/dl Lactate (0.4-2.0) mmol/L Calcium (8.5-10.1) mg/dl Total Bilirubin (0.2-1) mg/dl Direct Bilirubin 2.2 H (0-0.2) mg/dl AST (15-37) U/L ALT (12-78) U/L Alkaline Phosphatase (45-117) U/L Total Protein (6.4-8.2) gm/dl Albumin (3.4-5.0) gm/dl Lipase (73-393) U/L Urine Color Urine Appearance (Clear) Urine pH (4.5-7.5) Ur Specific [place] (1.000-1.030) Urine Protein (Negative) Urine Glucose (UA) (Negative) Urine Ketones (Negative) Urine Blood (Negative) Urine Nitrite (Negative) Urine Bilirubin (Negative) Urine Urobilinogen (Negative) Ur Leukocyte Esterase (Negative) Influenza Type A (PCR) (Neg) Influenza Type B (PCR) (Neg) Imaging Data Radiologist's Impression: Radiology results as stated below per my review and the radiologist's interpretation: XR abdomen 2V w PA chest HISTORY: 53 years-old Female epigastric pain acute epigastric abdominal pain COMPARISON: Chest radiograph 04/20/2018 TECHNIQUE: PA view of the chest with erect and supine views of the abdomen. FINDINGS: Cardiomediastinal and hilar silhouettes are within normal limits. No pneumothorax, pleural effusion, focal airspace consolidation or overt pulmonary edema. Bones appear grossly intact. No pneumatosis or pneumoperitoneum. Scattered radiodense foci noted throughout the bowel. Mild to moderate volume of formed colonic stool. Bowel gas pattern is nonobstructive. No definite urolith. Indeterminate pelvic basin calcifications, likely representing phleboliths. IMPRESSION: 1. No acute processes of the chest. 2. Nonobstructive bowel gas pattern. The above report was generated using voice recognition software. It may contain grammatical, syntax or spelling errors. Electronically signed by: Deepak Gregorio M.D. 12/28/2018 9:12 PM Radiology results as stated below per my review and the [facility] radiologist's interpretation: US RUQ: The gallbladder is distended containing gallstones with wall thickening and pericholecystic fluid which could represent acute cholecystitis in the correct clinical setting. The common bile duct measures 6 cm which is borderline dilated. No definite choledocholithiasis seen on ultrasound. Recommend correlation with liver function tests and consider MRCP if clinically indicated. Small lymph node in the periportal region is probably reactive. Partial visualization of an anechoic cyst in the left upper abdomen possibly arising from the left kidney versus pancreatic tail measuring approximately 5 cm. Consider further evaluation with MRI or CT. Radiologist: Lauryn Rosas MD Study ready at 23:36 and initial results transmitted at 23:49 Blood Pressure Blood Pressure Findings: Normal blood pressure Blood Pressure Disposition: did not require urgent referral MDM Narrative Patient became febrile in the emergency department. Labs showed elevated total bilirubin of 3.8, direct bilirubin of 2.2. AST and ALT elevated at 96 and 170 respectively. Alkaline phosphatase elevated 220. Ultrasound shows gallstones with mild pericholecystic fluid as well as gallbladder wall thickening. On repeat physical exam, the patient is tachycardic. Additional IV fluids ordered. On repeat abdominal exam, the patient is not having any pain on palpation of the right upper quadrant. Mild pain on palpation of the epigastric area. The patient does not have the classical triad for ascending cholangitis, she does not have right upper quadrant pain, however she does have fever, jaundice, and gallstones, there is concern that the patient has acute cholecystitis that has the potential to develop into asending cholangitis. I will start antibiotics and the patient Rocephin 2 g IV piggyback as well as Flagyl 500 mg IV piggyback. Tylenol IV given for the fever. I discussed the patient's case with Dr. Silveira, General Surgery. He states the patient should be admited to medicine and agrees to begin antibiotics. He states the patient should be evaluated by GI and he agrees to be on consult. I spoke with Dr. Irby of the [facility] Hospitalist Service. The patient will be evaluated for further management. Impression & Plan Ascending cholangitis Discharge Plan Visit Data Chief Complaint: Abdominal Pain Stated Complaint: SATURDAY NIGHT PAIN UNDER RIB CAGE/ABDOMEN ED Provider: Wili York Discharge Problem: Ascending cholangitis Patient Disposition: Being Evaluated by Hospitalist Forms Stand Alone Forms: Call Back Authorization, [facility] [employer] Prescriptions Prescriptions: No Action multivitamin Tablet 1 tab PO DAILY RF: 0 acetaminophen [Tylenol Extra Strength] 500 mg Tablet 100 mg PO BID PRN (Reason: Pain) RF: 0 ibuprofen 200 mg Tablet 800 mg PO Q4 PRN (Reason: Pain) RF: 0 buprenorphine-naloxone 8-2 mg tablet, sublingual 2 tabs sublingual DAILY RF: 0 calcium carbonate-vitamin D3 [Os-Jose 500 + D3] 500 mg(1,250mg) -200 unit Tablet 1 tab PO DAILY RF: 0 Referrals Referrals: Shailesh Sanders MD [Primary Care Provider] - The scribe's documentation has been prepared under my direction and personally reviewed by me in its entirety. I confirm that the note above accurately reflects all work, treatment, procedures, and medical decision making performed by me.
[2018-12-29] MEDS: D5W AND LACTATED RINGERS 1,000 ML IV SCH ×2 (03:40→16:57)
[2018-12-29 06:43] LABS: Eosinophils # (auto) 0.11 K/uL (0-0.5); Eosinophils % (auto) 2.9 %; Hematocrit (blood only) 32.5 % (37-47); Hemoglobin 11.2 g/dL (12.0-16.0); Immature Granulocytes # (auto) 0.01 K/uL (0.00-0.02); Immature Granulocytes % (auto) 0.3 %; Lymphocytes # (auto) 0.78 K/uL (1.2-3.4); Lymphocytes % (auto) 20.5 %; Mean Corpuscular Hgb Conc 34.5 g/dL (32-36); Mean Corpuscular Volume 89.3 fL (80-100); Mean Platelet Volume 8.6 fL (7.4-10.4); Monocytes # (auto) 0.32 K/uL (0.11-0.59); Monocytes % (auto) 8.4 %; Neutrophils # (auto) 2.59 K/uL (1.4-6.5); Neutrophils % (auto) 67.9 %; Platelet Count 120 K/uL (130-400); RDW Coefficient of Variation 12.4 % (11.5-14.5); RDW Standard Deviation 40.6 fL (36.4-46.3); Red Blood Count 3.64 M/uL (4.2-5.4); White Blood Count 3.81 K/uL (4.8-10.8)
--- NOTE | 2018-12-29 07:08 | Ultrasound Report ---
ULTRASOUND RIGHT UPPER QUADRANT ABDOMEN CLINICAL HISTORY: Epigastric abdominal pain. Nausea. Fever. COMPARISON STUDY: Abdominal radiographs dated 12/28/2018. TECHNIQUE: Real-time, grayscale, and color flow sonography of the right upper quadrant of the abdomen was performed. Images are reviewed in the transverse and longitudinal planes. FINDINGS: Liver: The liver is normal in size and echotexture. There is no intrahepatic biliary ductal dilatatio n. The main portal vein is patent. Gallbladder: The gallbladder is distended. Numerous shadowing calcified gallstones are identified. Th e gallbladder wall is thickened and edematous. There is trace pericholecystic fluid. A sonographic Mu rphy's sign is reportedly absent. The common bile duct measures up to 0.6 cm in diameter. Pancreas: Visualized portions of the pancreatic head and body are normal in appearance. Right kidney: Survey images of the right kidney demonstrate normal size and echotexture. There is no hydronephrosis. Ascites: None. IMPRESSION: 1. Cholelithiasis with evidence of acute cholecystitis. Surgical consultation is advised. 2. There is no intra or extrahepatic biliary ductal dilatation. Electronically signed by: Mele Carmichael M.D. 12/29/2018 7:06 AM
[2018-12-29 07:30] LABS: Albumin Level 2.6 gm/dl (3.4-5.0); Bilirubin,Total 1.6 mg/dl (0.2-1); Magnesium 1.9 mg/dl (1.8-2.4)
[2018-12-29] MEDS: metroNIDAZOLE 500 MG/100 ML BAG IV SCH ×2 (08:42→17:31)
--- NOTE | 2018-12-29 09:46 | Surgery Consultation ---
Date of Consultation December 29, 2018 Assessment & Plan (1) Cholecystitis: Cholelithiasis, U/S findings of cholecystitis, normal WBC and AM T-bili down to 1.6 from 3.8 last night. MRCP is pending, await results to decide between ERCP or lap ian with IOC. History of Present Illness Attending Physician: Huey Garcia, DO History of Present Illness 53 y/o female with epigastric pain evening into Saturday was her most severe pain but then improved. She then became "yellow" and came to the ED last evening (Saturday). Had some epigastric pain about a year ago but quickly resolved. Does not have pain currently but was febrile while in the ED. Allergies Allergy/AdvReac Type Severity Reaction Status Date / Time naproxen Allergy Severe swelling Verified 12/28/18 20:42 of face and throat Flu Virus Vaccine Allergy Unknown UNKNOWN Uncoded 12/28/18 20:42 Home Medications Home Medications Medication Instructions Recorded Confirmed Type acetaminophen [Tylenol Extra 100 mg PO BID PRN 12/28/18 12/28/18 History Strength] buprenorphine-naloxone 2 tabs SUBLINGUAL DAILY 12/28/18 12/28/18 History calcium carbonate-vitamin D3 1 tab PO DAILY 12/28/18 12/28/18 History [Os-Jose 500 + D3] ibuprofen 800 mg PO Q4 PRN 12/28/18 12/28/18 History multivitamin 1 tab PO DAILY 12/28/18 12/28/18 History Patient History Medical History Hepatitis (Resolved) Mononucleosis (Resolved) Chronic low back pain (Chronic 06/15/13) 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) Surgical History Previous section Family History Other No pertinent family history Social History Preferred Language: German Communication Ability: Effective Log Hauler Required: No Beliefs That Will Affect Care: None Current Living Situation: Alone Feels Safe at Home: Yes Safety Concerns: Feels Safe At This Time Smoking Status: Never smoker Hx Alcohol Use: No Hx Substance Use: No Review of Systems Constitutional: + fever; no anorexia Respiratory: no cough and no dyspnea Cardiovascular: no chest pain and no chest pain with activity Gastrointestinal: + abdominal pain; no bloating and no change in stools Physical Exam Constitutional: WD/WN, vitals as above no acute distress Eyes: + scleral abnormality (minimal icterus) Respiratory: normal respiratory effort, lungs clear to auscultation Cardiovascular: RRR, no murmur, no edema Gastrointestinal (Abdomen): normal bowel sounds, soft, nontender, no hepatosplenomegaly Inspection/Auscultation: abdomen not distended Skin: no rashes, warm and dry Results & Data Vital Signs (Past 12 Hours) Vital Signs Temp Pulse Pulse Resp BP Pulse Ox 12/29/18 07:50 37.6 C H 85 17 115/70 98 12/29/18 02:30 37.8 C H 103 H 16 115/65 95 12/29/18 01:13 38.4 C H 112 H 21 110/67 97 12/29/18 00:39 38.6 C H 112 H 14 121/64 97 12/28/18 23:40 38.8 C H 113 H 18 124/76 99 12/28/18 22:25 109 H 20 113/70 100
--- NOTE | 2018-12-29 09:52 | Gastrointestinal Consultation ---
Date of Consultation December 29, 2018 Assessment & Plan (1) Cholecystitis: (2) Cholelithiasis: 1. NPO for now. 2. Agree with MRCP and surgical evaluation. Discussed case with William Perkins PA-C. No plan for ERCP unless MRCP is positive. If positive, will transfer GI care to MERCED[facility] Daly. 3. Supportive care. Thank you for allowing us to participate in the care of this pleasant patient. If you have any questions or concerns, please do not hesitate to contact us. Supervising Physician Co-Signing Physician Notes Agree with CEDRICK Chen as above MRCP + ERCP performed by Dr. Patricio LONG will follow her case History of Present Illness Reason for Consultation: Cholecystitis Requesting Physician: Dr. Irby Attending Physician: Huey Garcia DO History of Present Illness Patient is a 53 year-old female with a history of Guillain-Azevedo Syndrome and viral hepatitis admitted with acute bilateral upper quadrant pain as well as fever prior to arrival. She did have a biliary ultrasound which was performed and demonstrated acute cholecystitis as well as cholelithiasis without biliary ductal dilation. She did not have an elevated WBC count but was noted to have an elevated liver panel as follows: TB 3.8, DB 2.2, AST 96, ALT 170 and ALP 220. Her liver panel did improve slight this morning and was as follows: TB 1.6, DB 1.0, AST 54, ALT 119, and ALP 174. She states her pain as resolved and rates her pain as 0/10 at present. She also denies any nausea or vomiting or other GI complaints. Allergies Allergy/AdvReac Type Severity Reaction Status Date / Time naproxen Allergy Severe swelling Verified 12/28/18 20:42 of face and throat Flu Virus Vaccine Allergy Unknown UNKNOWN Uncoded 12/28/18 20:42 Home Medications Home Medications Medication Instructions Recorded Confirmed Type acetaminophen [Tylenol Extra 100 mg PO BID PRN 12/28/18 12/28/18 History Strength] buprenorphine-naloxone 2 tabs SUBLINGUAL DAILY 12/28/18 12/28/18 History calcium carbonate-vitamin D3 1 tab PO DAILY 12/28/18 12/28/18 History [Os-Jose 500 + D3] ibuprofen 800 mg PO Q4 PRN 12/28/18 12/28/18 History multivitamin 1 tab PO DAILY 12/28/18 12/28/18 History Patient History Medical History Hepatitis (Resolved) Mononucleosis (Resolved) Chronic low back pain (Chronic 06/15/13) 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) Surgical History Previous section Family History Other No pertinent family history Social History Preferred Language: Tristanian Communication Ability: Effective President Of [place] Required: No Beliefs That Will Affect Care: None Current Living Situation: Alone Feels Safe at Home: Yes Safety Concerns: Feels Safe At This Time Smoking Status: Never smoker Hx Alcohol Use: No Hx Substance Use: No Review of Systems Review of Systems: All systems reviewed & are unremarkable except as noted in HPI & below Physical Exam Constitutional: WD/WN, vitals as above Eyes: EOM intact bilaterally Neck: normal appearance Respiratory: normal respiratory effort, lungs clear to auscultation Cardiovascular: RRR, no murmur, no edema Gastrointestinal (Abdomen): Inspection/Auscultation: normal bowel sounds Percussion/Palpation: abdomen soft; abdomen nontender, no guarding and abdomen not rigid Musculoskeletal: no pedal edema Skin: no rashes, warm and dry Psychiatric: A+Ox3, euthymic affect Results & Data Vital Signs (Past 12 Hours) Vital Signs Temp Pulse Pulse Resp BP Pulse Ox 12/29/18 07:50 37.6 C H 85 17 115/70 98 12/29/18 02:30 37.8 C H 103 H 16 115/65 95 12/29/18 01:13 38.4 C H 112 H 21 110/67 97 12/29/18 00:39 38.6 C H 112 H 14 121/64 97 12/28/18 23:40 38.8 C H 113 H 18 124/76 99 12/28/18 22:25 109 H 20 113/70 100
[2018-12-29] MEDS ORDERED: BUPRENORPHINE/NALOXONE 8/2 MG TAB SL SCH (11:15)
--- NOTE | 2018-12-29 11:32 | Magnetic Resonance Report ---
MRCP CLINICAL HISTORY: Cholecystitis. COMPARISON STUDY: Abdominal ultrasound dated 12/28/2018. TECHNIQUE: Abdominal MRCP is performed utilizing various T2-weighted sequences in the axial and coron al planes. 3-D reformats are created and assessed. IV contrast was not administered for this examinat ion. FINDINGS: The gallbladder is distended and there are numerous gallstones. The gallbladder wall is thickened and edematous, and there is pericholecystic stranding and fluid. The appearance is consistent with acute cholecystitis. There is no intrahepatic biliary ductal dilatation. There is mild dilatation of the c ommon bile duct which measures up to 7 mm. A 6 mm filling defect identified within the common bile du ct (coronal high-resolution image #64) is consistent with choledocholithiasis. The pancreatic duct is normal in caliber. The liver, spleen, pancreas, and adrenal glands are grossly normal. The kidneys are normal in size an d without hydronephrosis. A 6 cm cyst arises from the upper pole of the left kidney. Additional parap elvic cysts are noted on the left. There is no abdominal ascites. No bowel obstruction is seen. There is no pleural effusion. The bony structures are intact as imaged. IMPRESSION: 1. Cholelithiasis and acute cholecystitis. 2. Choledocholithiasis. Dictated: 12/29/2018 10:56 AM Transcribed: 12/29/2018 11:32 AM Mel [id number] NANCY_Jose Electronically signed by: Mele Carmichael M.D. 12/29/2018 11:40 AM
--- NOTE | 2018-12-29 11:36 | History & Physical Report ---
Date of Service December 29, 2018 Assessment & Plan (1) Choledocholithiasis: ERCP Present on Admission?: Yes History of Present Illness Primary Care Provider: Don Sanders MD Biliary colic with choledocholithiasis on MRCP Allergies Allergy/AdvReac Type Severity Reaction Status Date / Time naproxen Allergy Severe swelling Verified 12/28/18 20:42 of face and throat Flu Virus Vaccine Allergy Unknown UNKNOWN Uncoded 12/28/18 20:42 Home Medications Home Medications Medication Instructions Recorded Confirmed Type acetaminophen [Tylenol Extra 100 mg PO BID PRN 12/28/18 12/28/18 History Strength] buprenorphine-naloxone 2 tabs SUBLINGUAL DAILY 12/28/18 12/28/18 History calcium carbonate-vitamin D3 1 tab PO DAILY 12/28/18 12/28/18 History [Os-Jose 500 + D3] ibuprofen 800 mg PO Q4 PRN 12/28/18 12/28/18 History multivitamin 1 tab PO DAILY 12/28/18 12/28/18 History Past Med/Surg History Medical History Hepatitis (Resolved) Mononucleosis (Resolved) Chronic low back pain (Chronic 06/15/13) 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) Surgical History Previous section Family History Other No pertinent family history Social History Preferred Language: Spanish Communication Ability: Effective Boat Motor Mechanic Required: No Beliefs That Will Affect Care: None Current Living Situation: Alone Feels Safe at Home: Yes Safety Concerns: Feels Safe At This Time Smoking Status: Never smoker Hx Alcohol Use: No Hx Substance Use: No Physical Exam Vital Signs (Past 24 Hours): Last Vital Signs Temp 37.6 C H 12/29/18 07:50 Pulse 85 12/29/18 07:50 Resp 17 12/29/18 07:50 BP 115/70 12/29/18 07:50 Pulse Ox 98 12/29/18 07:50 Constitutional: WD/WN, vitals as above Respiratory: normal respiratory effort, lungs clear to auscultation Cardiovascular: RRR, no murmur, no edema Gastrointestinal (Abdomen): Percussion/Palpation: + abdomen tender and abdomen soft mild RUQ tenderness
--- NOTE | 2018-12-29 11:42 | Anesthesiology Consultation ---
Date of Service December 29, 2018 Assessment & Plan (1) Encounter for pre-operative examination: Chart Review Chart Review: Acceptable Risk for Surgery and Patient NOT seen in Pre Admission Testing Consults Requested none NPO Date Last Intake of Fluids: 12/29/18 Time Last Intake of Fluids: 01:15 Date Last Intake of Solids: 12/29/18 Time Last Intake of Solids: 01:15 History Surgery Operation Date: 12/29/18 13:55 Proposed Procedures p Laparoscopic Cholecystectomy, Possible Cholangiogram - Brian Sweeney MD, FACS s Endoscopic Retrograde Cholangiopancreatogram - Jonn Curry MD Height/Weight Height: 5 ft 1 in Weight: 75.4 kg Allergies Allergy/AdvReac Type Severity Reaction Status Date / Time naproxen Allergy Severe swelling Verified 12/28/18 20:42 of face and throat Flu Virus Vaccine Allergy Unknown UNKNOWN Uncoded 12/28/18 20:42 Medications Home Medications Medication Instructions Recorded Confirmed Last Taken acetaminophen [Tylenol Extra 100 mg PO BID PRN 12/28/18 12/28/18 12/28/18 12:00 Strength] buprenorphine-naloxone 2 tabs SUBLINGUAL DAILY 12/28/18 12/28/18 12/28/18 12:00 calcium carbonate-vitamin D3 1 tab PO DAILY 12/28/18 12/28/18 Unknown [Os-Jose 500 + D3] ibuprofen 800 mg PO Q4 PRN 12/28/18 12/28/18 Unknown multivitamin 1 tab PO DAILY 12/28/18 12/28/18 Unknown Active Medications Generic Name Dose Route Start Last Admin Trade Name Freq PRN Reason Stop Dose Admin Metronidazole 500 mg in 100 mls @ 100 mls/hr 12/29/18 08:00 12/29/18 08:42 Flagyl IV 01/08/19 07:59 100 mls/hr Q8H BOBY Administration Dextrose/Lactated Ringer's 1,000 mls @ 150 mls/hr 12/29/18 01:44 12/29/18 03:40 D5w And Lactated Ringers IV 12/29/18 15:03 150 mls/hr .Q6H40M BOBY Administration Past Medical History Medical History Hepatitis (Resolved) Mononucleosis (Resolved) Chronic low back pain (Chronic 06/15/13) 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) Past Family History Family History Other No pertinent family history Past Surgical History Surgical History Previous section Social History Smoking Status: Never smoker Hx Alcohol Use: No Hx Substance Use: No Physical Exam Vital Signs Last Vital Signs Temp 37.6 C H 12/29/18 07:50 Pulse 85 12/29/18 07:50 Resp 17 12/29/18 07:50 BP 115/70 12/29/18 07:50 Pulse Ox 98 12/29/18 07:50 Testing Laboratory Results 12/29/18 06:30 12/28/18 20:43 PT 10.9 Seconds (9.0-12.0) 12/28/18 20:43 INR 1.1 (0.9-1.1) 12/28/18 20:43 APTT 25.6 Seconds (21.0-31.0) 12/28/18 20:43 Urine Color Dark Yellow 12/28/18 20:50 Urine Appearance Clear (Clear) 12/28/18 20:50 Urine pH 6.5 (4.5-7.5) 12/28/18 20:50 Ur Specific Carson 1.010 (1.000-1.030) 12/28/18 20:50 Urine Protein Negative (Negative) 12/28/18 20:50 Urine Glucose (UA) Negative (Negative) 12/28/18 20:50 Urine Ketones Negative (Negative) 12/28/18 20:50 Urine Nitrite Negative (Negative) 12/28/18 20:50 Ur Leukocyte Esterase Negative (Negative) 12/28/18 20:50
[2018-12-29] MEDS: BUPRENORPHINE/NALOXONE 8/2 MG TAB SL SCH (11:53)
[2018-12-29] MEDS ORDERED: MIDAZOLAM HCL 1 MG/ML 2ML VIAL ONE (11:53)
[2018-12-29] MEDS ORDERED: fentaNYL citrate 100 MCG/2 ML VIAL ONE (11:53)
[2018-12-29] MEDS ORDERED: BUPIVACAINE 0.5 % 5 MG/1 ML MPF 30ML VIAL ONE (12:16)
[2018-12-29] MEDS ORDERED: CONRAY 60% 50 ML VIAL ONE (12:17)
[2018-12-29] MEDS ORDERED: ePHEDrine sulfate 50 MG/ML AMP IV PRN (12:18)
[2018-12-29] MEDS ORDERED: ATROPINE SULFATE 0.1 MG/ML 10ML SYR IV PRN (12:18)
[2018-12-29] MEDS ORDERED: INDOMETHACIN 50 MG SUPP PR ONE (12:21)
[2018-12-29] MEDS ORDERED: ACETAMINOPHEN 1000 MG/100 ML IV IV ONE (12:59)
[2018-12-29] MEDS ORDERED: GLYCOPYRROLATE 0.2 MG/ML VIAL ONE (13:01)
[2018-12-29] MEDS ORDERED: LIDOCAINE HCL 2% 2 ML VIAL/AMP(20MG/ML) INFIL ONE (13:01)
[2018-12-29] MEDS ORDERED: DEXAMETHASONE SOD INJ 4 MG/ML VIAL ONE (13:01)
[2018-12-29] MEDS ORDERED: PROPOFOL IV EMULSION 10 MG/ML 20 ML VIAL IV ONE (13:01)
[2018-12-29] MEDS ORDERED: NEOSTIGMINE METHYLSULFATE 5 MG/5 ML SYR ONE (13:01)
[2018-12-29] MEDS ORDERED: ONDANSETRON INJ 2 MG/ML 2 ML VIAL ONE (13:01)
--- NOTE | 2018-12-29 13:45 | Post Operative Brief Note ---
Immediate Post Op Note v1 Date of Surgery December 29, 2018 Pre & Post Diagnosis Operation Date: 12/29/18 13:55 Pre-Op Diagnosis: CHOLECYSTITIS OR CHOLANGITIS Choledocholithiasis Post-Op Diagnosis: Choledocholithiasis CHOLECYSTITIS OR CHOLANGITIS Procedure Operation Date: 12/29/18 13:55 Actual Procedures p Laparoscopic Cholecystectomy, Possible Cholangiogram(Not Applicable) - Brian Sweeney MD, FACS s Endoscopic Retrograde Cholangiopancreatogram with papillotomy, dilation of distal wade duct and stone extraction - Jonn Curry MD Surgeon Jonn Curry MD Heating Technician None Estimated Blood Loss 0 (0ml for ERCP ) Findings Consistent with Post-Op Diagnosis
--- NOTE | 2018-12-29 13:54 | Fluoroscopy Report ---
[place] ERCP biliary ductal CLINICAL HISTORY: CHECK DUCTS COMPARISON STUDY: MRCP December 29, 2018. Right upper quadrant ultrasound December 28, 2018. FLUOROSCOPY TIME: 3 minutes and 28 seconds. FLUOROSCOPIC IMAGES: 11. FINDINGS: These images demonstrate cannulation of the common bile duct. Several filling defects withi n the common bile duct are noted. These may reflect stones or gas bubbles. These images demonstrate a balloon sweep through the common bile duct. IMPRESSION: Fluoroscopic images from ERCP, as described above. Electronically signed by: Jayme Barros M.D. 12/29/2018 1:53 PM
--- NOTE | 2018-12-29 14:01 | GI REPORT ---
Patient Name: Consuelo Lo Procedure Date: 12/29/2018 11:48 AM Date of : 1965 Admit Type: Inpatient Age: 53 Gender: Female Attending MD: Jonn Curry MD Procedure: ERCP Providers: Jonn Curry MD Referring MD: Brian Uriostegui Dustin G. Case, DO Indications: For therapy of bile duct stone(s), Preop exam: Laparoscopic cholecystectomy Medicines: General Anesthesia Complications: No immediate complications. Estimated blood loss: None Estimated Blood Loss: Estimated blood loss: none. Procedure: Pre-Anesthesia Assessment: - Prior to the procedure, a History and Physical was performed, and patient medications, allergies and sensitivities were reviewed. The patient's tolerance of previous anesthesia was reviewed. - ASA Grade Assessment: II - A patient with mild systemic disease. After obtaining informed consent, the scope was passed under direct vision. Throughout the procedure, the patient's blood pressure, pulse, and oxygen saturations were monitored continuously. The Scope was introduced through the mouth, and advanced to the duodenum and used for direct visualization of the bile duct and ventral pancreatic duct. The ERCP was accomplished without difficulty. The patient tolerated the procedure well. Findings: The diagnostics sales developer film was normal. The esophagus was successfully intubated under direct vision without detailed examination of the pharynx, larynx, and associated structures, and upper GI tract. The upper GI tract was grossly normal. The major papilla was on the rim of a diverticulum. A Raymond Cook Acrobat 0.035 inch guidewire was passed through the Raymond Am[employer]ite FS Omni 35 sphincterotome into the ventral pancreatic duct, confirmed with a small amount of contrast filling a normal pancreatic duct in the head only. A Raymond Cook Acrobat 0.035 inch guidewire was passed through the Raymond Cook FS Omni 35 sphincterotome the biliary tree. The sphincterotome was passed over the guidewire to deeply cannulate the bile duct. Contrast was injected. The common bile duct contained one stone, which was 6 mm in diameter. A 7 mm biliary sphincterotomy was made with a monofilament sphincterotome using ERBE electrocautery. There was no post-sphincterotomy bleeding. Dilation of the distal common bile duct with an 8 mm balloon dilator was successful. To discover objects, the biliary tree was swept with a 9 mm balloon starting at the bifurcation. One stone was removed. No stones remained. Impression: - The major papilla was on the rim of a diverticulum. - Choledocholithiasis was found. Complete removal was accomplished by biliary sphincterotomy and balloon extraction. - A biliary sphincterotomy was performed. - Common bile duct was successfully dilated. - The biliary tree was swept. Recommendation: - Laparoscopic cholecystectomy planned to immediately follow. Jonn Curry M.D. Jonn Curry MD 12/29/2018 2:00:22 PM This report has been signed electronically. Note Initiated On: 12/29/2018 11:48 AM Number of Addenda: 0 I attest to the content of the Intraoperative Record and orders documented therein, exceptions below {[id number]}
[2018-12-29] MEDS ORDERED: ROCURONIUM BROMIDE 10 MG/ML 5 ML VIAL ONE (14:03)
--- NOTE | 2018-12-29 14:45 | Operative Report ---
Post Operative Report Pre & Post Diagnosis Operation Date: 12/29/18 13:55 Pre-Op Diagnosis: CHOLECYSTITIS OR CHOLANGITIS Post-Op Diagnosis: CHOLECYSTITIS and CHOLANGITIS acute and chronic cholecystitis, adhesions Procedure Operation Date: 12/29/18 13:55 Actual Procedures p Laparoscopic Cholecystectomy, Possible Cholangiogram(Not Applicable) - Brian Sweeney MD, FACS s Endoscopic Retrograde Cholangiopancreatogram(Not Applicable) - Jonn Curry MD Surgeon Brian Sweeney MD, FACS System Support Developer None Estimated Blood Loss 0 (0ml for ERCP ) Findings Consistent with Post-Op Diagnosis Specimens gallbladder Description of Procedure see dictation I attest to the content of the Intraoperative Record and any orders documented therein. Any exceptions are noted below.
[2018-12-29] MEDS ORDERED: ACETAMINOPHEN 1,000 MG/100 ML VIAL IV ONE (14:55)
[2018-12-29] MEDS: HYDROmorphone INJ 1 MG/ML SYRINGE IV PRN ×8 (15:26→16:17)
--- NOTE | 2018-12-29 15:47 | Hospitalist Progress Note ---
Date of Service December 29, 2018 Assessment & Plan (1) Cholecystitis: Acute and chronic cholecystitis based on operative findings s/p lap ian on 12/29, tolerated well, no complications continue Cefriaxone and Flagyl for time being will discuss further plans with general surgery (2) Choledocholithiasis: initially treated with Ceftriaxone and Flagyl clinically improved in the morning MRCP showed CBD stone ERCP revealed 6mm stone, removed with sphicterotomy and balloon extraction tolerated well bili was trending down to 1.6 from 3.8 prior to procedure (3) Cholelithiasis: see above, this caused cholecystitis and choledocholithiasis (4) Ascending cholangitis: improved quickly on Abx vitals stable, no fever s/p ERCP and stone removal today (5) Guillain-Azevedo syndrome: h/o such, takes Suboxone chronically for neuropathic pain Subjective patient was feeling better this morning with IV antibiotics MRCP showed a stone in CBD GI took for ERCP in the operating room, found to have a 6mm CBD stone, successfully removed lap ian performed afterwards, found to have acute and chronic cholecystitis no complications reviewed labs this AM prior to procedures, WBC low at 3.8 Total bili down to 1.6 from 3.8 AST and ALT slightly high, Alk phos 174 discussed plans with general surgery as well as [facility] gastroenterology Review of Systems Review of Systems: All systems reviewed & are unremarkable except as noted in HPI & below Constitutional: no fever, no chills and no sweats Respiratory: no cough and no dyspnea Cardiovascular: no chest pain Gastrointestinal: + abdominal pain (RUQ) and + nausea; no belching, no heartburn, no vomiting, no constipation and no diarrhea/loose stools Physical Exam Constitutional: WD/WN, vitals as above Eyes: PERRL, conjunctivae normal, anicteric sclerae ENMT: external ear and nose normal, oropharynx normal Neck: trachea midline, no thyromegaly Respiratory: normal respiratory effort, lungs clear to auscultation Cardiovascular: RRR, no murmur, no edema Gastrointestinal (Abdomen): Inspection/Auscultation: abdomen normal to inspection and normal bowel sounds; abdomen not distended Percussion/Palpation: + abdomen tender (RUQ) and abdomen soft; no guarding, abdomen not rigid and no hepatosplenomegaly Musculoskeletal: no cyanosis or clubbing, extremities motor strength 5/5 Skin: no rashes, warm and dry Neurologic: patellar DTR's 2+ bilat, sensation intact and PERRL, EOMI, accommodation nl, no face palsy, no dysarthria Psychiatric: A+Ox3, euthymic affect Lymphatic: no cervical or axillary lymphadenopathy Results & Data Vital Signs (Past 12 Hours) Vital Signs Temp Pulse Resp BP BP Pulse Ox 12/29/18 15:40 63 14 114/70 100 12/29/18 15:30 59 L 12 108/67 100 12/29/18 15:20 54 L 13 108/57 L 100 12/29/18 15:10 57 L 13 118/76 100 12/29/18 15:02 37.2 C 81 19 117/76 100 12/29/18 12:19 37.3 C 94 H 18 116/72 97 12/29/18 07:50 37.6 C H 85 17 115/70 98 Laboratory Results Laboratory Results - last 24 hr 12/28/18 12/28/18 12/28/18 20:43 20:43 20:43 WBC 4.64 L RBC 4.06 L Hgb 12.8 Hct 36.4 L MCV 89.7 MCH 31.5 MCHC 35.2 RDW Std Deviation 39.6 RDW Coeff of Stephanie 12.3 Plt Count 162 MPV 9.0 Immature Gran % (Auto) 0.2 Neut % (Auto) 85.8 Lymph % (Auto) 7.8 [place] % (Auto) 4.7 Eos % (Auto) 1.3 Baso % (Auto) 0.2 Immature Gran # (Auto) 0.01 Neut # (Auto) 3.98 Lymph # (Auto) 0.36 L [place] # (Auto) 0.22 Eos # (Auto) 0.06 Baso # (Auto) 0.01 PT 10.9 INR 1.1 APTT 25.6 PTT Ratio 0.9 Sodium 138 Potassium 4.0 Chloride 102 Carbon Dioxide 29 Anion Gap 7.0 BUN 8 Creatinine 0.83 Est Cr Clr Drug Dosing 72.8 Est GFR ( Amer) 93.3 Est GFR (Non-Af Amer) 80.5 BUN/Creatinine Ratio 9.5 L Glucose 125 H Lactate Calcium 8.9 Magnesium Total Bilirubin 3.8 H Direct Bilirubin AST 96 H ALT 170 H Alkaline Phosphatase 220 H Total Protein 7.2 Albumin 3.3 L Lipase 121 Urine Color Urine Appearance Urine pH Ur Specific [place] Urine Protein Urine Glucose (UA) Urine Ketones Urine Blood Urine Nitrite Urine Bilirubin Urine Urobilinogen Ur Leukocyte Esterase Influenza Type A (PCR) Influenza Type B (PCR) 12/28/18 12/28/18 12/28/18 20:43 20:50 20:50 WBC RBC Hgb Hct MCV MCH MCHC RDW Std Deviation RDW Coeff of Stephanie Plt Count MPV Immature Gran % (Auto) Neut % (Auto) Lymph % (Auto) [place] % (Auto) Eos % (Auto) Baso % (Auto) Immature Gran # (Auto) Neut # (Auto) Lymph # (Auto) [place] # (Auto) Eos # (Auto) Baso # (Auto) PT INR APTT PTT Ratio Sodium Potassium Chloride Carbon Dioxide Anion Gap BUN Creatinine Est Cr Clr Drug Dosing Est GFR ( Amer) Est GFR (Non-Af Amer) BUN/Creatinine Ratio Glucose Lactate 2.0 Calcium Magnesium Total Bilirubin Direct Bilirubin AST ALT Alkaline Phosphatase Total Protein Albumin Lipase Urine Color Dark Yellow Urine Appearance Clear Urine pH 6.5 Ur Specific [place] 1.010 Urine Protein Negative Urine Glucose (UA) Negative Urine Ketones Negative Urine Blood Negative Urine Nitrite Negative Urine Bilirubin 1+ H Urine Urobilinogen Negative Ur Leukocyte Esterase Negative Influenza Type A (PCR) Neg for Influ A Influenza Type B (PCR) Neg for Influ B 12/28/18 12/29/18 12/29/18 23:25 06:30 06:30 WBC 3.81 L RBC 3.64 L Hgb 11.2 L Hct 32.5 L MCV 89.3 MCH 30.8 MCHC 34.5 RDW Std Deviation 40.6 RDW Coeff of Stephanie 12.4 Plt Count 120 L MPV 8.6 Immature Gran % (Auto) 0.3 Neut % (Auto) 67.9 Lymph % (Auto) 20.5 [place] % (Auto) 8.4 Eos % (Auto) 2.9 Baso % (Auto) 0.0 Immature Gran # (Auto) 0.01 Neut # (Auto) 2.59 Lymph # (Auto) 0.78 L [place] # (Auto) 0.32 Eos # (Auto) 0.11 Baso # (Auto) 0.00 PT INR APTT PTT Ratio Sodium Potassium Chloride Carbon Dioxide Anion Gap BUN Creatinine Est Cr Clr Drug Dosing Est GFR ( Amer) Est GFR (Non-Af Amer) BUN/Creatinine Ratio Glucose Lactate Calcium Magnesium 1.9 Total Bilirubin 1.6 H D Direct Bilirubin 2.2 H 1.0 H D AST 54 H ALT 119 H Alkaline Phosphatase 174 H Total Protein 6.0 L Albumin 2.6 L Lipase Urine Color Urine Appearance Urine pH Ur Specific [place] Urine Protein Urine Glucose (UA) Urine Ketones Urine Blood Urine Nitrite Urine Bilirubin Urine Urobilinogen Ur Leukocyte Esterase Influenza Type A (PCR) Influenza Type B (PCR) Diagnostic Findings [place] ERCP biliary ductal CLINICAL HISTORY: CHECK DUCTS COMPARISON STUDY: MRCP December 29, 2018. Right upper quadrant ultrasound December 28, 2018. FLUOROSCOPY TIME: 3 minutes and 28 seconds. FLUOROSCOPIC IMAGES: 11. FINDINGS: These images demonstrate cannulation of the common bile duct. Several filling defects within the common bile duct are noted. These may reflect stones or gas bubbles. These images demonstrate a balloon sweep through the common bile duct. IMPRESSION: Fluoroscopic images from ERCP, as described above. MRCP CLINICAL HISTORY: Cholecystitis. COMPARISON STUDY: Abdominal ultrasound dated 12/28/2018. TECHNIQUE: Abdominal MRCP is performed utilizing various T2-weighted sequences in the axial and coronal planes. 3-D reformats are created and assessed. IV contrast was not administered for this examination. FINDINGS: The gallbladder is distended and there are numerous gallstones. The gallbladder wall is thickened and edematous, and there is pericholecystic stranding and fluid. The appearance is consistent with acute cholecystitis. There is no intrahepatic biliary ductal dilatation. There is mild dilatation of the common bile duct which measures up to 7 mm. A 6 mm filling defect identified within the common bile duct (coronal high-resolution image #64) is consistent with choledocholithiasis. The pancreatic duct is normal in caliber. The liver, spleen, pancreas, and adrenal glands are grossly normal. The kidneys are normal in size and without hydronephrosis. A 6 cm cyst arises from the upper pole of the left kidney. Additional parapelvic cysts are noted on the left. There is no abdominal ascites. No bowel obstruction is seen. There is no pleural effusion. The bony structures are intact as imaged. IMPRESSION: 1. Cholelithiasis and acute cholecystitis. 2. Choledocholithiasis. Medications Administered Current Inpatient Medications Atropine Sulfate (Atropine Sulfate) 0.5 mg IV Q1M PRN PRN Reason: PACU Use-HR<40 &/or Bradycardi Stop: 12/29/18 17:18 Buprenorphine/Naloxone (Suboxone 8 Mg/2 Mg) 1 - 1.5 tab SL DAILY BOBY Stop: 01/28/19 11:29 Last Admin: 12/29/18 11:53 Dose: Not Given Documented by: Ephedrine Sulfate (Ephedrine Sulfate) 5 mg IV Q5M PRN PRN Reason: PACU Use Only-SBP<90 mmHg Stop: 12/29/18 17:18 Hydromorphone HCl (Dilaudid) 0.25 mg IV Q5M PRN PRN Reason: PACU Use Only-Pain Stop: 12/29/18 17:18 Last Admin: 12/29/18 15:42 Dose: 0.25 mg Documented by: Metronidazole (Flagyl) 500 mg in 100 mls @ 100 mls/hr IV Q8H [facility] Stop: 01/08/19 07:59 Last Infusion: 12/29/18 09:45 Dose: Infused Documented by: Ceftriaxone Sodium 2,000 mg/ (Dextrose) 70 mls @ 100 mls/hr IV Q24H [facility]; Protocol Stop: 01/07/19 21:59
--- NOTE | 2018-12-29 16:05 | Anesthesiology Progress Note ---
Date of Service December 29, 2018 Anesthesia Post Procedure Vital Signs Vital Signs: Temp Pulse Pulse Pulse Resp BP BP 12/29/18 16:00 56 L 14 114/69 12/29/18 15:50 55 L 14 105/64 12/29/18 15:40 63 14 114/70 12/29/18 15:30 59 L 12 108/67 12/29/18 15:20 54 L 13 108/57 L 12/29/18 15:10 57 L 13 118/76 12/29/18 15:02 37.2 C 81 19 117/76 12/29/18 12:19 37.3 C 94 H 18 12/29/18 07:50 37.6 C H 85 17 12/29/18 02:30 37.8 C H 103 H 16 12/29/18 01:13 38.4 C H 112 H 21 12/29/18 00:39 38.6 C H 112 H 14 12/28/18 23:40 38.8 C H 113 H 18 12/28/18 22:25 109 H 20 12/28/18 21:15 95 H 20 12/28/18 20:01 37.5 C 69 16 121/78 BP Pulse Ox 12/29/18 16:00 100 12/29/18 15:50 99 12/29/18 15:40 100 12/29/18 15:30 100 12/29/18 15:20 100 12/29/18 15:10 100 12/29/18 15:02 100 12/29/18 12:19 116/72 97 12/29/18 07:50 115/70 98 12/29/18 02:30 115/65 95 12/29/18 01:13 110/67 97 12/29/18 00:39 121/64 97 12/28/18 23:40 124/76 99 12/28/18 22:25 113/70 100 12/28/18 21:15 112/82 99 12/28/18 20:01 99 Pain Intensity Right Abdomen: Pain Intensity: 3 Transfer of Care Handoff Completed per policy Notes Mental Status: alert / awake / arousable Patient Amnestic to Procedure: Yes Nausea / Vomiting: adequately controlled Pain: adequately controlled Airway Patency, RR, SpO2: stable & adequate BP & HR: stable & adequate Hydration State: stable & adequate Anesthetic Complications: no major complications apparent and Pt Satisfied with anesthetic care
[2018-12-29] MEDS ORDERED: PROMETHAZINE HCL 12.5 MG in SODIUM CHLORIDE 0.9% 50 ML IV PRN (16:47)
[2018-12-29] MEDS ORDERED: ONDANSETRON INJ 2 MG/ML 2 ML VIAL IV PRN (16:47)
[2018-12-29] MEDS ORDERED: HYDROmorphone INJ 0.5 MG/0.5 ML SYR IV PRN (16:47)
[2018-12-29] MEDS ORDERED: HYDROCODONE/ACETAMOPHEN 5/325MG TAB PO PRN (16:47)
[2018-12-29] MEDS ORDERED: HYDROmorphone INJ 1 MG/ML SYRINGE IV PRN (16:47)
[2018-12-29] MEDS ORDERED: ACETAMINOPHEN 325 MG TAB PO PRN (16:47)
[2018-12-29] MEDS ORDERED: SODIUM CHLORIDE 0.9% 1000ML 1,000 ML IV SCH (16:47)
[2018-12-29] MEDS ORDERED: PROMETHAZINE HCL 25 MG in SODIUM CHLORIDE 0.9% 50 ML IV PRN (16:47)
[2018-12-29] MEDS: HYDROCODONE/ACETAMOPHEN 5/325MG TAB PO PRN (19:50)
[2018-12-29] MEDS: DOCUSATE SODIUM/SENNA 50/8.6MG TAB PO SCH (21:02)
--- NOTE | 2018-12-29 21:50 | Operative Report ---
DATE OF OPERATION: 12/29/2018 NAME OF OPERATION: Laparoscopic cholecystectomy with lysis of adhesions. PREOPERATIVE DIAGNOSES: Cholangitis and cholecystitis. POSTOPERATIVE DIAGNOSIS: Cholangitis and cholecystitis with acute and chronic cholecystitis and adhesions. STAFF SURGEON: Brian Sweeney MD LOGGING EQUIPMENT OPERATOR: Chong Perkins PA-C ANESTHESIA: General. PROCEDURE: The patient was in the operating room. She had just undergone ERCP by Dr. Curry and then was placed in the supine position. Her abdomen was prepped and draped in usual fashion. Pneumatic stockings, orogastric tube were placed. My pastoral assistant helped with prepping, draping, removal of the gallbladder and closure of the wounds. A 0.5% plain Marcaine was used to anesthetize skin and subcutaneous tissue above the umbilicus. Incision made carrying dissection down to the fascia, placing a Veress needle producing pneumoperitoneum. An 11 mm port was placed this level and under visualization, three 5 mm ports were placed, 1 cephalad and 2 laterally. The gallbladder was grasped and retracted. There were relatively dense adhesions consistent with chronic inflammation to the gallbladder. These were taken down. The gallbladder was acutely inflamed. It was aspirated of bile. Dissection was carried out at the ceasar hepatis identifying a dilated cystic duct which was clipped and transected. The cystic artery then clipped and transected, then the gallbladder dissected away from the liver bed in the usual fashion. It did show signs of acute and chronic cholecystitis. After appropriate irrigation, the gallbladder was placed in an Endobag and then it was removed through the umbilical site. I did have to enlarge the skin and fascial opening slightly to remove the gallbladder because of its size. The fascia at the umbilicus closed using interrupted 0 Vicryl suture and then the skin reapproximated using subcuticular 4-0 Monocryl and Dermabond. The patient was transferred to recovery room in stable condition. I attest to the content of the Intraoperative Record and any orders documented therein. Any exception s are noted below.
[2018-12-29] MEDS ORDERED: cefTRIAXone SODIUM 2,000 MG in DEXTROSE 5% 50 ML IV SCH (22:00)
--- OUTSIDE RECORDS SUMMARY | 2018-12-29 22:45 | External Medical Summary | Continuity of Care Document ---
:1965 Author Name Nanette Busby, Provider Address Unavailable Unavailable , Care Team Providers Name Role Phone Unavailable Unavailable Unavailable Elina Diallo PA-C Unavailable [email or web address] Charles SANDERS M.D. Unavailable Unavailable Case Yaniv BERRIOS Unavailable [email or web address] Juan SANCHEZ M.D., Lucia. Unavailable [email or web address] Oziel Campbell M.D. Unavailable [email or web address] Tasneem Busby Unavailable [email or web address] Unavailable Unavailable Unavailable Unavailable Unavailable Problems Encounter for routine gynecological exam ination with Papanicolaou smear of cervix (V72.31) (Z01.419) Acute sinusitis (461.9) (J01.90) Low back pain (724.2) (M54.5) Rotator cuff injury (959.2) (S46.009A) Osteoarthrosis (715.90) (M19.90) Peripheral neuropathy (356.9) (G62.9) Depression (311) (F32.9) Pain in knee (719.46) (M25.569) History of Guillain-Comer syndrome (357.0) (G61.0) Status: Resolved Anxiety (300.00) (F41.9) Pain syndrome, chronic (338.4) (G89.4) Vitamin D deficiency (268.9) (E55.9) 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) Allergic rhinitis (477.9) (J30.9) Impaired fasting glucose (790.21) (R73.01) Edema (782.3) (R60.9) Thyroid disorder (246.9) (E07.9) Fatigue (780.79) (R53.83) Menopausal and perimenopausal disorder (627.9) (N95.9) Carpal tunnel syndrome (354.0) (G56.00) Insomnia (780.52) (G47.00) History of Anaphylaxis (V13.81) Status: Resolved 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 Use as directed and go to the ER for immediate follow up. YASH Diallo Start: 07-Mar-2010 Quantity: 2 Refills: 0 Multi-Vitamin TABS; TAKE 1 TABLET DAILY. , M.D. Refills: 0 Calcium-Vitamin D3 600-500 MG-UNIT Oral Capsule; TAKE 2 CAPS ULE Daily , M.D. Refills: 0 Procedures History of Cervical Conization Loop Electrode Excision Status: Completed History of Pap smear of cervix with ASCUS, cannot exclude HG OLAYINKA Status: Completed History of shoulder surgery Status: Comp leted Immunizations Influenza Not Administered Family History Father Family history of Malignant Pancreatic Neoplasm Status: Acti ve Mother Family history of lung cancer (V16.1) (Z80.1) Status: Active aunt Family history of breast cancer (V16.3) (Z80.3) Status: Acti ve Social History - Smoking Status Unknown if ever smoked Never smoker Plan of Treatment Planned Observations Planned Goals not documented Results X-ray Abdomen 2 View w/PA Chest Rtn Laboratory: [facility] Diagno stic Imaging 1800 (Pending) Miguelito Peterson [place] 28-Dec-2018 21:10 ABDOMEN 2VIEW W/PA CHEST RTN [facility], [place] XRay Report Patient: GEORGIE SCHMITZ Admit Date: 9 MR#: [id number] Address1: [address] Acct ID:[id number] Address2: [address] Date: [address] [place] [address] Zip: [place] [id number] Age: 53 Location: ED Sex: F Room/Bed: Att Phy: Diagnosis: SATURDAY NIGHT PAIN UND ER RIB CAGE/ABD OMEN Stacia Phy: Don Sanders MD Service D ate: 12/28/18 Fam Phy: Mely erDon MD Interpret ing Phy: Anthony Gregorio Admit Phy: Ordering Phy: Juan Carlos York M.D. cc: XR abdomen 2V w PA chest HISTORY: 53 years-old Female epigastric pain acute epigastric abdominal pain COMPARISO N: Chest radiograph 04/20/2018 TECHNIQU E: PA view of the chest with erect and supi ne views of the abdomen. FINDINGS: Cardiomediastinal and hilar silhouettes are within normal limits. No pneumothorax, pleural effusion, focal airspace consolidation or overt pulmonary edema. Bones appear grossly intact. No pneumatosis or pneumoperitoneum. Scatter ed radiodense foci noted throughout the bow el. Mild to moderate volume of formed coloni c stool. Bowel gas pattern is nonobstructi ve. No definite urolith. Indeterminate pelvi c basin calcifications, likely representin g phleboliths. IMPRESSION: 1. No a cute processes of the chest. 2. Nonobstruct amrita bowel gas pattern. The above report was generated using voice recogni tion software. It may contain grammatical, syntaxor spelling errors. Electronically signed by: Deepak bearden M.D. 12/28/2018 9:12 PM Dictat ed: 12/28/182109 Transcribed: 12/28 Ultrasound Gallbladder Abd Ltd Laboratory: [facility] Diagnostic Imaging 1800 (Pending) Miguelito Theodore [facility] [place] 29-Dec-2018 7:04 Gallbladder Abd Ltd [facility], [place] [phone] Ultrasound Report Patient: GEORGIE SCHMITZ Admit Date: 9 MR#: [id number] Address1: [address] Acct ID:[id number] Address2: [address] Date: 1965 [facility] Zip: [place] [address] Age: 53 Location: 3W Sex: F Room/Bed: W351-2 Att Phy: Juan Irby M.D. Diagnosis: FLAKITA CYSTITIS OR CHOLANGITIS Stacia Phy: Don Sanders MD Ser vice D ate: 12/28/18 Fam P hy: Don Sanders MD Interpret ing Phy: Mele Carmicheal MD Admit Phy: Juan Irby M.D . Ordering Phy: Wili York M.D. cc: ULTRASOUND RIGHT UPPER QUADRANT ABDOMEN CLINIC AL HISTORY: Epigastric abdominal pain. Naus ea. Fever. COMPARISON STUDY: Abdominal radiographs dated 12/28/2018. TECHNI QUE: Real-time, grayscale, and color flow sonography of the right upper quadrant o f the abdomen was performed. Images are reviewed in the transverse and longitudi nal planes. FINDINGS: Liver: The l iver is normal in size and echotexture. There is no intrahepatic biliary ductal dilatatio n. The main portal vein is patent. Gallbladder: The gallbladder is distende d. Numerous shadowing calcified gallstones are identified. The gallbladder wall is thickened and edematous. There is trace pericholecystic fluid. A sonographicMurp hy's sign is reportedly absent. The common bi le duct measures up to 0.6 cm in diameter. Pancreas: Visualized portions of the pancreatic head and body are normal in appearance. Right kidney: Survey im ages of the right kidney demonstrate normal s ize and echotexture. There is no hydronephro sis. Ascites: None. IMPRESSION: 1. Cholelithiasis with evidence of acut e cholecystitis. Surgical consultation is advised. 2. There is no intra or extrahepatic biliary ductal dilatation. Electronically signed by: Mele Carmichael M.D. 12/29/2018 7:06 AM Dictated: 12/29/18 0704 Transcri bed: 12/29/18 0704 MRI Abd w/o Cont Biliary Tree (MRCP) Laboratory: [facility] Diagn ostic Imaging 1800 (Pending) Miguelito Peterson [place] 29-Dec-2018 10:56 MRI ABD W/O CONT BILIARY TREE [facility], [place] Magnetic Resonance Report Patie nt: GEORGIE SCHMITZ Admit Date: 9 MR#: [id number] Address1: [address] Acct ID:[id number] Address2: [address] Date: 1965 [facility] Zip: [place] [address] Age: 53 Location: 3W Sex: F Room/Bed: [facility] Att Phy: Huey Garcia D .O. Diagnosis: C HOLECYSTITIS OR CHOLANGITIS Stacia Phy: Don Sanders MD Ser vice D ate: 12/29/18 Fam P hy: Don Sanders MD Interpret ing Phy: Mele Carmichael MD Admit Phy: Juan Irby M.D . Ordering Phy: Huey Garcia D.O. cc: MRCP CLINICAL HISTORY: Cholecystitis. COMPARISON STUDY: Abdominal ultrasound d ated 12/28/2018. TECHNIQUE: Abdominal MR CP is performed utilizing various T2-weight ed sequences in the axial and coronal plane s. 3-D reformats are created and assessed. IV contrast was not administered for this examination. FINDINGS: The gallbladder is distended and there are numerous gallstones. The gallbladder wal l is thickened and edematous, and there is pericholecystic stranding and fluid. The appearance is consistent with acute cholecystitis. There is no intrahepatic biliary ductal dilatation. There is mild dilatation ofthe common bile duct which measures up to 7 mm. A [address] defe [address] identified within the common bile duct (coronal high-resolution image #64) is consistent with choledocholithiasis. The pancreaticduct is normal in caliber. The liver, spleen, pancreas, and adrenal glands are grossly normal. The kidneys a re normal in size and without hydronephrosi s. A 6 cm cyst arises from the upper pole of the left kidney. Additional parapelvic cysts are noted on the left. There is no abdominal ascites. No bowel obstruction is seen.Th ere is no pleural effusion. The bony structu res are intact as imaged. IMPRESSION: 1. Cholelithiasis and acute cholecystiti s. 2. Choledocholithiasis. Dictated: 12/29/2018 10:56 AM Transcri bed: 12/29/2018 11:32 AM Mel [id number] NANCY_Jose Electronically sig robert by: Mele Carmichael M.D. 12/29/2018 11:4 0 AM Dictated: 12/29/18 1056 Transcribed: 12/29/18 1132 RADFL ERCP Biliary Ductal (Pending) Laboratory: [facility] Diagno stic Imaging 1800 Miguelito Theodore Kristen [place] 29-Dec-2018 13:50 RADFL ERCP Biliary Ductal [facility], [place] Fluoroscopy Report Patient: GEORGIE SCHMITZ Admit Date: 9 MR#: [id number] Address1: [address] Acct ID:[id number] Address2: [address] Date: 1965 [facility] Zip: [place] [address] Age: 53 Location: 3W Sex: F Room/Bed: [facility] Att Phy: Huey Garcia D .O. Diagnosis: C HOLECYSTITIS OR CHOLANGITIS Stacia Phy: Don Sanders MD Ser vice D ate: 12/29/18 Fam P hy: Don Sanders MD Interpret ing Phy: Jayme Chaidez Admit Phy: Juan Irby M.D. Ordering Phy: Jonn Curry M.D. cc: [place] ERCP biliary ductal CLINICAL HISTORY: [place] DUCTS COMPARISON STUDY: MRCP Ap 2018. Right upper quadrant ultrasoun d December 28, 2018. FLUOROSCOPY TIME: 3 minutes and 28 seconds. FLUOROSCOPI C IMAGES: 11. FINDINGS: These images demonstrate cannulation of the common bi le duct. Several filling defects within the common bile duct are noted. These may reflect stones or gas bubbles. These eduard ges demonstrate a balloon sweep through the common bile duct. IMPRESSION: Fluoroscopic images from ERCP, as descri bed above. Electronically signed by: Jayme Barros M.D. 12/29/2018 1:53 PM Dictated: 12/29/18 1350 Transcribed: 12/29/18 1350 Encounters Appointment; Sheila Zelaya CRNP 16-Dec-2018 9:30 Encounter Diagnosis: Problem not documented Appointment; Hailee Torres M.D. 24-Oct-2017 9:00 Encounter Diagnosis: Problem not documented Appointment; Jazlyn Pacheco PA-C 14-Oct-2017 9:00 Encounter Diagnosis: Problem not documented
[2018-12-30] MEDS: metroNIDAZOLE 500 MG/100 ML BAG IV SCH ×2 (00:17→07:22)
[2018-12-30] MEDS: HYDROCODONE/ACETAMOPHEN 5/325MG TAB PO PRN ×2 (05:50→11:21)
[2018-12-30 05:55] LABS: Basophils # (auto) 0.02 K/uL (0-0.2); Basophils % (auto) 0.4 %; Eosinophils # (auto) 0.06 K/uL (0-0.5); Eosinophils % (auto) 1.1 %; Hematocrit (blood only) 33.3 % (37-47); Hemoglobin 11.6 g/dL (12.0-16.0); Immature Granulocytes # (auto) 0.01 K/uL (0.00-0.02); Immature Granulocytes % (auto) 0.2 %; Lymphocytes # (auto) 1.33 K/uL (1.2-3.4); Lymphocytes % (auto) 25.3 %; Mean Corpuscular Hgb Conc 34.8 g/dL (32-36); Mean Platelet Volume 8.7 fL (7.4-10.4); Monocytes # (auto) 0.52 K/uL (0.11-0.59); Monocytes % (auto) 9.9 %; Neutrophils # (auto) 3.31 K/uL (1.4-6.5); Neutrophils % (auto) 63.1 %; Platelet Count 138 K/uL (130-400); RDW Coefficient of Variation 12.4 % (11.5-14.5); White Blood Count 5.25 K/uL (4.8-10.8)
[2018-12-30 06:29] LABS: Albumin Level 2.6 gm/dl (3.4-5.0); BUN Creatinine Ratio 11.3 (10-20); Bilirubin Direct 0.5 mg/dl (0-0.2); Calcium 8.2 mg/dl (8.5-10.1); Creatinine Clr Calc Pharmacy 83.9 ml/min; Est GFR (African American) 110.8; Est GFR (Non-African American) 95.6; Potassium 3.8 mmol/L (3.5-5.1)
[2018-12-30 06:35] LABS: Albumin Globulin Ratio 0.7 (0.9-2); Bilirubin,Total 0.9 mg/dl (0.2-1); Globulin 3.7 gm/dl (2.5-4.0); Phosphorus 2.2 mg/dl (2.5-4.9); Total Protein 6.3 gm/dl (6.4-8.2)
--- NOTE | 2018-12-30 08:22 | Gastroenterology Progress Note ---
Date of Service December 30, 2018 Assessment & Plan (1) Choledocholithiasis: 53 year old female admitted w/ acute cholecystitis w/ choledocholithiasis and elevated LFTs now s/p ERCP w/ sphincterotomy and balloon extraction followed by cholecystectomy. Clinically doing well w/ downtrending LFTs. - No GI contraindication to diet - No GI contraindication to DC home - Antiemetics PRN - Analgesia PRN - No biliary stent in place, no [facility] follow up is needed Thank you for allowing us to participate in the care of this patient. Please call with any acute changes, questions or concerns. Please see addendum below with additional recommendation from my supervising physician. Present on Admission?: Yes (2) Cholelithiasis: Present on Admission?: Yes (3) Cholecystitis: Present on Admission?: Yes Supervising Physician Co-Signing Physician Notes I have performed a history and physical examination of this patient and reviewed the electronic medical record. Specifically, on physical examination there is minimal epigastric tenderness. Lipase is normal. I have discussed the case with CEDRICK Frias. The above note reflects my findings, conclusions, and recommendations. Jonn Curry MD Subjective Pt was seen and evaluated, chart reviewed. S/P ERCP and cholecystectomy. Feeling well this AM. No abd pain. No nausea, vomiting. No BM since Saturday but denies prior black/bloody stools. No fever, chills, CP, SOB. ERCP: The major papilla was on the rim of a diverticulum. Choledocholithiasis was found. Complete removal was accomplished by biliary sphincterotomy and balloon extraction. A biliary sphincterotomy was performed.Common bile duct was successfully dilated.The biliary tree was swept. Review of Systems Constitutional: no fever, no body aches, no weakness and no weight loss Respiratory: no cough, no dyspnea, no pain on inspiration and no wheezing Cardiovascular: no chest pain, no radiating jaw, neck or arm pain, no dyspnea on exertion and no palpitations Gastrointestinal: no abdominal pain, no early satiety, no vomiting, no change in stools and no melena Physical Exam Constitutional: WD/WN, vitals as above Respiratory: normal respiratory effort, lungs clear to auscultation Cardiovascular: RRR, no murmur, no edema Gastrointestinal (Abdomen): normal bowel sounds, soft, nontender, no hepatosplenomegaly Skin: no rashes, warm and dry Results & Data Vital Signs (Past 12 Hours) Vital Signs Temp Pulse Pulse Resp BP BP Pulse Ox 12/30/18 06:55 37.0 C 60 16 99/63 L 97 12/30/18 03:48 36.9 C 61 16 101/68 98 12/29/18 22:59 36.9 C 58 L 16 103/62 99 Laboratory Results 12/30/18 12/30/18 Range/Units 05:42 05:42 WBC 5.25 (4.8-10.8) K/uL RBC 3.70 L (4.2-5.4) M/uL Hgb 11.6 L (12.0-16.0) g/dL Hct 33.3 L (37-47) % MCV 90.0 (80-100) fL MCH 31.4 (25-34) pg MCHC 34.8 (32-36) g/dL RDW Std Deviation 41.0 (36.4-46.3) fL RDW Coeff of Stephanie 12.4 (11.5-14.5) % Plt Count 138 (130-400) K/uL MPV 8.7 (7.4-10.4) fL Immature Gran % (Auto) 0.2 % Neut % (Auto) 63.1 % Lymph % (Auto) 25.3 % Edwards % (Auto) 9.9 % Eos % (Auto) 1.1 % Baso % (Auto) 0.4 % Immature Gran # (Auto) 0.01 (0.00-0.02) K/uL Neut # (Auto) 3.31 (1.4-6.5) K/uL Lymph # (Auto) 1.33 (1.2-3.4) K/uL Edwards # (Auto) 0.52 (0.11-0.59) K/uL Eos # (Auto) 0.06 (0-0.5) K/uL Baso # (Auto) 0.02 (0-0.2) K/uL Sodium 139 (136-145) mmol/L Potassium 3.8 (3.5-5.1) mmol/L Chloride 109 H (98-107) mmol/L Carbon Dioxide 28 (21-32) mmol/L Anion Gap 2.0 L (3-11) BUN 8 (7-18) mg/dl Creatinine 0.72 (0.6-1.2) mg/dl Est Cr Clr Drug Dosing 83.9 ml/min Est GFR ( Amer) 110.8 Est GFR (Non-Af Amer) 95.6 BUN/Creatinine Ratio 11.3 (10-20) Glucose 106 H (70-99) mg/dl Calcium 8.2 L (8.5-10.1) mg/dl Phosphorus 2.2 L (2.5-4.9) mg/dl Total Bilirubin 0.9 D (0.2-1) mg/dl Direct Bilirubin 0.5 H (0-0.2) mg/dl AST 41 H (15-37) U/L ALT 100 H (12-78) U/L Alkaline Phosphatase 171 H (45-117) U/L Total Protein 6.3 L (6.4-8.2) gm/dl Albumin 2.6 L (3.4-5.0) gm/dl Globulin 3.7 (2.5-4.0) gm/dl Albumin/Globulin Ratio 0.7 L (0.9-2) Lipase 209 (73-393) U/L
--- NOTE | 2018-12-30 08:36 | Surgery Progress Note ---
Date of Service December 30, 2018 Assessment & Plan (1) Choledocholithiasis: POD 1 lap ian/ERCP LFTs normalizing tolerating diet ok for d/c from surgical standpoint Subjective no complaints, eating regular breakfast, po analgesics Physical Exam Gastrointestinal (Abdomen): Inspection/Auscultation: abdomen not distended Percussion/Palpation: abdomen soft Results & Data Vital Signs (Past 12 Hours) Vital Signs Temp Pulse Pulse Resp BP BP Pulse Ox 12/30/18 06:55 37.0 C 60 16 99/63 L 97 12/30/18 03:48 36.9 C 61 16 101/68 98 12/29/18 22:59 36.9 C 58 L 16 103/62 99
[2018-12-30] MEDS ORDERED: HEPARIN SOD 5,000 UNIT/0.5 ML VIAL SQ SCH (09:00)
[2018-12-30] MEDS ORDERED: MAGNESIUM HYDROXIDE SUSP 30 ML UDC PO SCH (09:00)
[2018-12-30] MEDS ORDERED: POTASSIUM CHLORIDE 20 MEQ TABCR PO SCH (09:00)
[2018-12-30] MEDS: BUPRENORPHINE/NALOXONE 8/2 MG TAB SL SCH (09:15)
[2018-12-30] MEDS: DOCUSATE SODIUM/SENNA 50/8.6MG TAB PO SCH (09:16)
--- NOTE | 2018-12-30 10:10 | Discharge Summary ---
Date of Service December 30, 2018 Admission HPI Per Admitting Provider 53 y/o F Hx [place] 2008, lower extremity neuropathy - taking Suboxone for pain management. Presents with upper quadrant abdominal pain. She developed a fever of 101.2 while in the ER. An US is consistent with cholelithiasis and cholecystitis. The CBD is minimally dilated. There is also a lesion or cyst arising from the upper pole of the kidney or tail of the pancreas. PMH: 1) [place] 2007 2) Lower extremity neuropathy 3) Pain management with Suboxone - denies prior narcotic addiction and states she was placed on Suboxone to avoid narcotic use for her pain. Surgical: Denies Social: Does not drink or smoke. 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 Admission Exam Per Admitting Provider General: AAO x 3, no distress ENT: No erythema or exudates, no thrush Eyes: ROWENA, EOMI - mild icterus Head and neck: Normocephalic, atraumatic, No JVD, neck is supple. Chest/heart: Nontender, S1,2, RRR, no murmurs, no gallops Lungs: CTAB, no wheezing or crackles Abdomen: Mild upper quadrant tenderness to palpation Neuro: AAO x 3, speech is clear, no unilateral weakness or loss of sensation, coordination intact Musculoskeletal: No joint inflammation, muscle tenderness, FROM Skin: No acute rashes or ulcers Extremities: No clubbing, cyanosis, edema Principal Diagnosis Cholelithiasis with Acute cholecystitis and choledocholithiasis Discharge Exam Constitutional WD/WN, vitals as above Eyes PERRL, conjunctivae normal, anicteric sclerae ENMT external ear and nose normal, oropharynx normal Neck trachea midline, no thyromegaly Respiratory normal respiratory effort, lungs clear to auscultation Cardiovascular RRR, no murmur, no edema Gastrointestinal (Abdomen) Inspection/Auscultation: abdomen normal to inspection and normal bowel sounds; abdomen not distended Percussion/Palpation: + abdomen tender (mild incisional tenderness, no further RUQ pain) and abdomen soft; no guarding, abdomen not rigid and no hepatosplenomegaly Musculoskeletal no cyanosis or clubbing, extremities motor strength 5/5 Skin no rashes, warm and dry Neurologic patellar DTR's 2+ bilat, sensation intact and PERRL, EOMI, accommodation nl, no face palsy, no dysarthria Psychiatric A+Ox3, euthymic affect Lymphatic no cervical or axillary lymphadenopathy Discharge Data Allergies Allergy/AdvReac Type Severity Reaction Status Date / Time naproxen Allergy Severe swelling Verified 12/28/18 20:42 of face and throat Flu Virus Vaccine Allergy Unknown UNKNOWN Uncoded 12/28/18 20:42 Consultations 12/29/18 00:10 ED Decision to Admit Stat 12/29/18 01:55 Consult Gastroenterology Routine 12/29/18 09:03 Consult General Surgery Routine Procedures Performed Operation Date: 12/29/18 13:55 Actual Procedures p Laparoscopic Cholecystectomy(Not Applicable) - Brian Sweeney MD, FACS s Endoscopic Retrograde Cholangiopancreatogram(Not Applicable) - Jonn Curry MD Ordered Studies 12/28/18 20:17 US gallbladder Urgent 12/29/18 09:07 MR MRCP Urgent 12/29/18 12:00 FL ERCP biliary ductal Routine Hospital Course (1) Cholecystitis: Acute and chronic cholecystitis based on operative findings s/p lap ian on 12/29, tolerated well, no complications treated with Cefriaxone and Flagyl during admission no fever, WBC normal source of infection removed with cholecystectomy and ERCP with stone removal (2) Choledocholithiasis: initially treated with Ceftriaxone and Flagyl clinically improved in the morning MRCP showed CBD stone ERCP revealed 6mm stone, removed with sphicterotomy and balloon extraction tolerated well bili trended down to normal today (3) Cholelithiasis: see above, this caused cholecystitis and choledocholithiasis (4) Ascending cholangitis: improved quickly on Abx vitals stable, no fever s/p ERCP and stone removal on 12/29 no further antibiotics (5) Guillain-Azevedo syndrome: h/o such, takes Suboxone chronically for neuropathic pain Total Time Total Time Spent Total Time Spent (In Minutes): 35 minutes Total Time Includes: Examination of the Patient, Discharge Planning, Medication Reconciliation and Communication With Other Providers (general surgery, Dr. Sweeney) Discharge Plan Discharge Items Patient Disposition: Home - Self-Care Reason For Visit: CHOLECYSTITIS OR CHOLANGITIS Discharge Diagnosis: Cholangitis and Cholecystitis Condition: Good Discharge Goals: Decrease discomfort and Improve disease control Activity: Per 'Additional Instructions' section Lifting: No more than 10 pounds Bathing: No limitations Bathing Comment: ok to shower, you have skin glue that is waterproof Driving/Machine Use: Resume 3 days after discharge Non-emergency contact: Surgeon Call non-emergency contact if: you have any medication questions, your pain is not controlled, you have a fever, your temperature is above 101.5 and your wound has increased redness Follow-up/Referrals: Brian Sweeney MD, FACS [Physician] - (Call to make an appt in 1-2 weeks) Shailesh Sanders MD [Primary Care Provider] - Diet: Low Fat Addtl Provider Instructions: Eat a low fat diet for a few days Prescriptions: New hydrocodone-acetaminophen [Filley] 5-325 mg tablet 1 - 2 tab PO Q4H Qty: 15 RF: 0 Continued multivitamin Tablet 1 tab PO DAILY RF: 0 ibuprofen 200 mg Tablet 800 mg PO Q4 PRN (Reason: Pain) RF: 0 buprenorphine-naloxone 8-2 mg tablet, sublingual 2 tabs sublingual DAILY RF: 0 calcium carbonate-vitamin D3 [Os-Jose 500 + D3] 500 mg(1,250mg) -200 unit Tablet 1 tab PO DAILY RF: 0 Discontinued acetaminophen [Tylenol Extra Strength] 500 mg Tablet 100 mg PO BID PRN (Reason: Pain) RF: 0 Stand-Alone Forms: Call Back Authorization, [facility], Opioid [facility] n Management Discharge Orders: Discharge Order (Routine); Ordered 12/30/18 Ordered By: Huey Garcia Admission Data Admit Date/Time: 12/29/18 00:45 Attending Provider: Huey Garcia Admit Provider: Juan Irby Primary Care Provider: Shailesh Sanders Other Providers: Juan Iryb ; Mingo Garcia ; Karen Moon ; Pushpa Morgan ; Logan Verma ; Vanessa Minor ; Alycia Mann ; Christa Rock ; Jonn Curry ; Steve Koo ; Mimi Bahena ; Melissa Panye ; Dorothy Martin ; Molly Carreno ; Chiquis Quevedo ; Stuart Silveira Service: Medical Other Interventions: Discharge Summary Assessment (RN) Last Done: 12/30/18 12:09
== END 2018-12-30 13:26 | disposition home or self-care (01) | DRG 418 ==
LOC: ED 19:53 → 3W 12-29 00:45 → SUATTDRO 12-29 00:45 → 3W 12-29 01:25